=== PATIENT | male | born 1985 ===

== ENCOUNTER 2020-06-05 12:20 | Emergency (ER) | payer OTHER, MEDICAID, SELFPAY ==
[2020-06-05 12:40] VITALS: BP 143/97; PULSE 79; RESP 18; TEMP 36.7; O2SAT 97
[2020-06-05 13:36] LABS: Add Manual Diff / Slide Review NO; Basophils Absolute Auto 100 /uL (0-100); Basophils Percent Auto 0.4 % (0-2); Eosinophils Absolute Auto 100 /uL (0-450); Hematocrit 40.2 % (41-53); Hemoglobin 13.6 g/dL (13.5-17.5); Lymphocytes Absolute Auto 3500 /uL (1100-4500); Lymphocytes Percent Auto 26.8 % (25-40); Mean Corpuscular HGB Conc 33.8 % (30-36); Mean Corpuscular Volume 100.6 fL (80-100); Monocytes Absolute Auto 1200 /uL (0-900); Monocytes Percent Auto 9.4 % (3-14); Neutrophils Absolute Auto 8100 /uL (1500-7000); Neutrophils Percent Auto 62.4 % (50-75); Platelet Count 212 X10^3/uL (150-400); Red Blood Cell Count 3.99 X10^6/uL (4.5-5.9); Red Cell Distribution Width 12.2 % (11.6-14.8); White Blood Cell Count 13.1 X10^3/uL (4.5-11.0)
[2020-06-05] MEDS: ONDANSETRON 4 MG/2 ML INJ IV ×2 (13:38→14:22)
[2020-06-05] MEDS: SODIUM CHLORIDE 0.9% 1,000 ML 1000 ML IV (13:38)
[2020-06-05 14:02] LABS: Alanine Aminotransferase 17 IU/L (<50); Albumin 3.8 g/dL (3.5-5.0); Albumin Globulin Ratio 1.2 (1.0-2.8); Alkaline Phosphatase 115 U/L (38-126); Aspartate Aminotransferase 35 IU/L (17-59); BUN Creatinine Ratio 15.2 (6-22); Bilirubin Total 0.4 mg/dL (0.2-1.3); Blood Urea Nitrogen 12 mg/dL (9-20); Carbon Dioxide 33 mmol/L (22-32); Chloride 102 mmol/L (98-107); Estimated Glomerular Filt Rate > 60.0 mL/min (>60); Globulin 3.1 g/dL (1.7-4.1); Glucose 93 mg/dL (70-100); HEMOLYSIS < 15 (0-50); Lipase 51 U/L (23-300); Potassium 3.7 mmol/L (3.4-5.1); Sodium 139 mmol/L (137-145); Total Protein 6.9 g/dL (6.3-8.2)
--- NOTE | 2020-06-05 14:17 | ED.ABDPAIN ---
HPI - Abdominal Pain <ALEX Cameron - Last Filed: 06/05/20 21:46> General Chief Complaint: Abdominal Pain Stated Complaint: Stomach Pain Time Seen by Provider: 06/05/20 13:23 Source: patient Mode of arrival: Ambulatory Limitations: no limitations History of Present Illness HPI narrative: This is a 35-year-old male, smoker and drinks alcoholic beverages 6 packs/daily, who presents to ED with chief complain of ongoing generalized abdominal pain but worse in periumbilical region, diarrhea, and nausea for months but worsening during last 3 days. Patient denies blood in his stool stool or vomit. Patient reports had taken amoxicillin last course about 2 months ago. 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 He denies eating bad food or recent camping or traveling except related to work. Patient was evaluated at [facility] several times in the past and was referred to [facility] GI clinic to study for Crohn's disease. Patient reports he had received and endo and colonoscopy on 05/31/2020 was told normal findings and was discharged. Previously he was diagnosed as colitis and had used prednisone which helps with his abdominal discomfort. He reports he had finished course of prednisone 7 days ago. Patient denies fever or chills. Patient reports due to pain, nausea and decreased appetite, his not been eating well and feels very fatigued for last 3 days and has been in bed rest. He currently takes Suboxone for previous methamphetamine drug addiction. Related Data Home Medications Medication Instructions Recorded Confirmed buprenorphine-naloxone [Suboxone] 2 film SUBLINGUAL QAM 06/05/20 06/05/20 Previous Rx's Medication Instructions Recorded dicyclomine 20 mg PO BID PRN #10 tab 06/05/20 ondansetron 4 mg PO Q8H PRN #10 tab 06/05/20 pantoprazole 20 mg PO DAILY #14 tab 06/05/20 Allergies Allergy/AdvReac Type Severity Reaction Status Date / Time No Known Drug Allergies Allergy Verified 06/05/20 12:44 Review of Systems <AELX Cameron - Last Filed: 06/05/20 21:46> Review of Systems Narrative: General: Denies fever, chills, (+) fatigue, malaise, sweats. HEENT: Denies sinus pain, ear pain, sore throat, difficulty swallowing, dizziness. Respiratory: Denies dyspnea, cough, wheezing, hemoptysis, sputum. Cardiovascular: Denies chest pain, palpitations, orthopnea, edema. Gastrointestinal: HPI : Denies dysuria, frequency, incontinence, hematuria, urinary retention. Musculoskeletal: Denies weakness, joint pain or bony pain. Skin: Denies rash, skin lesions, or other. Neurologic: Denies weakness, headache, numbness, change in speech, confusion, seizures, incoordination. Psychiatric: No concerning psychosocial issues. 12-point review of systems is negative except for those stated above. Patient History <ALEX Cameron - Last Filed: 06/05/20 21:46> Medical History (Updated 06/05/20 @ 17:28 by ALEX Cameron) Colitis (Acute) Social History Smoking Status: Current every day smoker Smoking Status: Current every day smoker tobacco type: cigarettes alcohol intake frequency: 3 or more drinks per day Alcohol type: beer Substance Use Type: does not use Exam <ALEX Cameron - Last Filed: 06/05/20 21:46> Narrative Exam Narrative: GEN: Alert, oriented x 3, thin appearing and in no acute distress. Head: Normal cephalic, atraumatic. No scalp or temporal tenderness, palpable mass or rash. EYES: Pupils are equal, round, and reactive to light and accommodation. Extraocular muscles are intact bilaterally. There is no subconjunctival hemorrhage, exudate and sclera non-icteric. ENT: Hearing grossly intact. Nose without bleeding, purulent discharge. Airway patent. Neck: Trachea in midline. No JVD, non-tender without lymphadenopathy. No masses or thyroid megaly. Supple, non-tender and no meningeal signs. CARDIAC: Normal regular rate and rhythm without murmurs, gallops, or rubs. No chest wall tenderness. No peripheral edema, cyanosis or pallor. Capillary refill is less than 2 seconds. RESPIRATORY: Lungs are clear to auscultate bilaterally. No cough, wheezes, rales, or rhonchi. No stridor, respiratory distress, increase work of breathing, or accessary muscle used. ABD: Abdomen soft and non-distended. Mild tenderness to palpate in generalized abdomen. No guarding or rebound tenderness to palpate. Bowel sounds are normal in all 4 quadrants. There is no palpable masses or organomegaly. EXT: Full painless ROM of all extremities with no loss of sensation, strength, effusion or edema. SKIN: Warm, dry, normal color for patient. No erythema, lesions or rash over visible areas. BACK: Nontender without deformity or crepitance. No flank tenderness. NEUROLOGICAL: Alert and oriented to place, time and person. Sensation and motor function intact bilaterally. No facial droops, dysphasia. PSYCHIATRIC: Good judgement and reason, without hallucinations, abnormal affect or abnormal behaviors during the examination. Patient is not suicidal. Initial Vital Signs Initial Vital Signs: Vital Signs Temperature 98.1 F 06/05/20 12:40 Pulse Rate 79 06/05/20 12:40 Respiratory Rate 18 06/05/20 12:40 Blood Pressure 143/97 H 06/05/20 12:40 Pulse Oximetry 97 06/05/20 12:40 <Nikky Madrid DO - Last Filed: 06/07/20 08:30> Initial Vital Signs Initial Vital Signs: Vital Signs Temperature 98.1 F 06/05/20 12:40 Pulse Rate 79 06/05/20 12:40 Respiratory Rate 18 06/05/20 12:40 Blood Pressure 143/97 H 06/05/20 12:40 Pulse Oximetry 97 06/05/20 12:40 Scores <ALEX Cameron - Last Filed: 06/05/20 21:46> GCS Decker coma scale eye opening: Spontaneous Decker coma scale verbal response: Orientated Decker coma scale motor response: Obey commands Nicholas coma scale total score: 15 Course <ALEX Cameron Last Filed: 06/05/20 21:46> Orders Ordered: Discontinued Medications Dicyclomine HCl (Bentyl) 10 mg PO NOW ONE Stop: 06/05/20 14:14 Last Admin: 06/05/20 14:22 Dose: 10 mg Documented by: AFRICA Sodium Chloride (Normal Saline 0.9%) 1,000 mls @ 1,000 mls/hr IV CONT DIAZ Last Infusion: 06/05/20 14:57 Dose: 0 mls/hr Documented by: Admin: 06/05/20 13:38 Dose: 1,000 mls/hr Documented by: AFRICA Ketorolac Tromethamine (Toradol) 15 mg IV NOW ONE Stop: 06/05/20 16:13 Last Admin: 06/05/20 16:20 Dose: 15 mg Documented by: AFRICA Ondansetron HCl (Zofran) 4 mg IV NOW ONE Stop: 06/05/20 13:02 Last Admin: 06/05/20 13:38 Dose: 4 mg Documented by: AFRICA Ondansetron HCl (Zofran) 4 mg IV NOW ONE Stop: 06/05/20 14:14 Last Admin: 06/05/20 14:22 Dose: 4 mg Documented by: AFRICA Pantoprazole Sodium (Protonix) 40 mg IV NOW ONE Stop: 06/05/20 14:14 Last Admin: 06/05/20 14:22 Dose: 40 mg Documented by: AFRICA Reevaluation(s) Reevaluation #1: the patient reports nause and abodminal discomfort slightly improved. The patient was unable to provide stool sample. There was no vomiting since he came into ED. Time: 16:00 Consultations Consultation #1: Dr. Madrid consulted and recommended imaging test to rule out free fluid in abdomen for perforation since the patient had recent colono- and endo-scopy. Vital Signs Vital signs: Vital Signs - 8 hr 06/05/20 12:40 Temperature 98.1 F Pulse Rate 79 Respiratory Rate 18 Blood Pressure 143/97 H Pulse Oximetry 97 <Nikky Madrid, DO - Last Filed: 06/07/20 08:30> Orders Ordered: Discontinued Medications Dicyclomine HCl (Bentyl) 10 mg PO NOW ONE Stop: 06/05/20 14:14 Last Admin: 06/05/20 14:22 Dose: 10 mg Documented by: AFRICA Sodium Chloride (Normal Saline 0.9%) 1,000 mls @ 1,000 mls/hr IV CONT DIAZ Last Infusion: 06/05/20 14:57 Dose: 0 mls/hr Documented by: Admin: 06/05/20 13:38 Dose: 1,000 mls/hr Documented by: AFRICA Ketorolac Tromethamine (Toradol) 15 mg IV NOW ONE Stop: 06/05/20 16:13 Last Admin: 06/05/20 16:20 Dose: 15 mg Documented by: AFRICA Ondansetron HCl (Zofran) 4 mg IV NOW ONE Stop: 06/05/20 13:02 Last Admin: 06/05/20 13:38 Dose: 4 mg Documented by: AFRICA Ondansetron HCl (Zofran) 4 mg IV NOW ONE Stop: 06/05/20 14:14 Last Admin: 06/05/20 14:22 Dose: 4 mg Documented by: AFRICA Pantoprazole Sodium (Protonix) 40 mg IV NOW ONE Stop: 06/05/20 14:14 Last Admin: 06/05/20 14:22 Dose: 40 mg Documented by: AFRICA Vital Signs Vital signs: Vital Signs - 8 hr 06/05/20 12:40 Temperature 98.1 F Pulse Rate 79 Respiratory Rate 18 Blood Pressure 143/97 H Pulse Oximetry 97 MDM - Abdominal Pain <Dre ALEX Flores - Last Filed: 06/05/20 21:46> Differential Diagnosis Differential diagnosis: Likely abdominal pain, gastroenteritis, pancreatitis and other (Perforated bowel, gastritis, ulcers, C diff infection) Medical Records Attestation: I reviewed the patient's medical records. Lab Data Attestation: I reviewed the patient's lab results. Result diagrams: 06/05/20 13:25 06/05/20 13:25 Labs: Lab Results 06/05/20 06/05/20 06/05/20 Range/Units 13:25 13:25 13:25 WBC 13.1 H (4.5-11.0) X10^3/uL RBC 3.99 L (4.5-5.9) X10^6/uL Hgb 13.6 (13.5-17.5) g/dL Hct 40.2 L (41-53) % MCV 100.6 H (80-100) fL MCH 34.0 (26-34) PG MCHC 33.8 (30-36) % RDW 12.2 (11.6-14.8) % Plt Count 212 (150-400) X10^3/uL Neut % (Auto) 62.4 (50-75) % Lymph % (Auto) 26.8 (25-40) % Stoddard % (Auto) 9.4 (3-14) % Eos % (Auto) 1.0 L (2-4) % Baso % (Auto) 0.4 (0-2) % Neut # (Auto) 8100 H (5498-4966) /uL Lymph # (Auto) 3500 (6255-2503) /uL Stoddard # (Auto) 1200 H (0-900) /uL Eos # (Auto) 100 (0-450) /uL Baso # (Auto) 100 (0-100) /uL Sodium 139 (137-145) mmol/L Potassium 3.7 (3.4-5.1) mmol/L Chloride 102 (98-107) mmol/L Carbon Dioxide 33 H (22-32) mmol/L BUN 12 (9-20) mg/dL Creatinine 0.79 (0.66-1.25) mg/dL Estimated GFR > 60.0 (>60) mL/min BUN/Creatinine Ratio 15.2 (6-22) Glucose 93 (70-100) mg/dL Lactate 0.9 (0.7-2.1) mmol/L Calcium 9.0 (8.4-10.2) mg/dL Total Bilirubin 0.4 (0.2-1.3) mg/dL AST 35 (17-59) IU/L ALT 17 (<50) IU/L Alkaline Phosphatase 115 (38-126) U/L Total Protein 6.9 (6.3-8.2) g/dL Albumin 3.8 (3.5-5.0) g/dL Globulin 3.1 (1.7-4.1) g/dL Albumin/Globulin Ratio 1.2 (1.0-2.8) Lipase 51 (23-300) U/L Point of care testing: Urine Dip Bedside Urine Glucose Negative Bedside Urine Bilirubin - Negative Bedside Urine Ketone - Negative Urine Specific Leroy 1.015 Bedside Urine Occult Blood - Negative Bedside Urine pH 6.5 Bedside Urine Protein - Negative Bedside Urine Urobilinogen - Negative Bedside Urine Nitrite - Negative Bedside Urine Leukocytes - Negative Esterase Imaging Data Abdominal x-ray: Radiologist's Impression: [address] [address] XRay Report Signed Patient: Reymundo Pagan MMR#: [id number] : 1985Acct:[id number] Age/Sex: 35 / MDate of Service: 06/05/20 Loc: ED Accession Number: [id number] Procedure: XR acute abdomen series Ordering Provider: Dre Flores PROCEDURE: XR ACUTE ABDOMEN SERIES INDICATIONS: abd pain, s/p endo and colonoscope 5 days ago, ?perf TECHNIQUE: One view chest and two views of the abdomen were acquired. COMPARISON: None. FINDINGS: Surgical changes and devices: None. Chest: Lungs are clear. Heart size is normal. No pleural effusions. Abdomen: In this patient with this given history, scrutiny is given to findings of perforation. None can be seen. The bowel gas pattern is nonobstructive, with no dilated loops seen. Bones: No suspicious bony lesions. IMPRESSION: Negative for perforation. Dictated by: Serge Prakash M.D. on 06/05/2020 at 16:08 Approved by: Serge Prakash M.D. on 06/05/2020 at 16:09 [facility] Narrative Medical decision making narrative: This is a 35-year-old male who has ongoing abdominal discomfort with nausea, diarrhea. He was evaluated in other emergency room with CT tests and blood test and was referred to GI specialist for upper and lower school for Crohn's evaluation which patient has family history of Crohn's and other autoimmune disease. Medical records were obtained from [facility] and [facility]. He was able to follow-up with GI specialist 5 days ago and had normal endo and colnoscopy results reviewing the records. Patient reports pain, diarrhea and nausea is worse today and has not been able to eat well due to decreased appetite and discomfort which cause significant fatigue. Mildly elevated WBC of 13.1 with neutrophil# of 8100 and this could be due to nausea and vomiting. Normal lipase with unremarkable chemistry test. Although patient is in moderate alcohol drinker but liver function tests were normal. Lactate was normal. Urine test indicates no infection. Patient was unable to provide stool sample to test C diff and GI panel for cause for other infectious diarrhea. Patient is nontoxic appearance with afebrile. Given patient had recent scopes done, abdominal x-ray was ordered which shows no free air indicating perforation. Given patient had normal scopes done 5 days ago and this is ongoing abdominal pain, in shared decision making deferred another abdominal CT test today. Last abdominal CT was done in February at [facility] on 03/10/20 and 03/12/20 indicating suggestive of gastroenteritis involving the small bowel and proctitis. Patient reports was on several course of steroids treatments and thinks this improves his symptoms but will hold at this time after discussing possible side effects and there is no Crohn's appreciated at this time per colonoscopy. The patient was treated with IV fluids, pantoprazole, Zofran 2 doses, Bentyl for discomfort which improve his symptoms mildly. Patient did not have episode of emesis or stools in ED. patient advised to follow-up with GI clinic and to arrange primary care physician and [facility] phone number. Patient discharged to home with Zofran, Bentyl and Protonix for as needed use with return precautions. Advised to push fluids and it bland diet and advance it as he tolerates. We discussed warrant CT test if his symptoms gets worse. Return precautions were discussed and patient verbalized understanding in agreement with the treatment plan. <Nikky Madrid, DO - Last Filed: 06/07/20 08:30> Lab Data Labs: Lab Results 06/05/20 06/05/20 06/05/20 Range/Units 13:25 13:25 13:25 WBC 13.1 H (4.5-11.0) X10^3/uL RBC 3.99 L (4.5-5.9) X10^6/uL Hgb 13.6 (13.5-17.5) g/dL Hct 40.2 L (41-53) % MCV 100.6 H (80-100) fL MCH 34.0 (26-34) PG MCHC 33.8 (30-36) % RDW 12.2 (11.6-14.8) % Plt Count 212 (150-400) X10^3/uL Neut % (Auto) 62.4 (50-75) % Lymph % (Auto) 26.8 (25-40) % Stoddard % (Auto) 9.4 (3-14) % Eos % (Auto) 1.0 L (2-4) % Baso % (Auto) 0.4 (0-2) % Neut # (Auto) 8100 H (7751-6676) /uL Lymph # (Auto) 3500 (3636-5583) /uL Stoddard # (Auto) 1200 H (0-900) /uL Eos # (Auto) 100 (0-450) /uL Baso # (Auto) 100 (0-100) /uL Sodium 139 (137-145) mmol/L Potassium 3.7 (3.4-5.1) mmol/L Chloride 102 (98-107) mmol/L Carbon Dioxide 33 H (22-32) mmol/L BUN 12 (9-20) mg/dL Creatinine 0.79 (0.66-1.25) mg/dL Estimated GFR > 60.0 (>60) mL/min BUN/Creatinine Ratio 15.2 (6-22) Glucose 93 (70-100) mg/dL Lactate 0.9 (0.7-2.1) mmol/L Calcium 9.0 (8.4-10.2) mg/dL Total Bilirubin 0.4 (0.2-1.3) mg/dL AST 35 (17-59) IU/L ALT 17 (<50) IU/L Alkaline Phosphatase 115 (38-126) U/L Total Protein 6.9 (6.3-8.2) g/dL Albumin 3.8 (3.5-5.0) g/dL Globulin 3.1 (1.7-4.1) g/dL Albumin/Globulin Ratio 1.2 (1.0-2.8) Lipase 51 (23-300) U/L Point of care testing: Urine Dip Bedside Urine Glucose Negative Bedside Urine Bilirubin - Negative Bedside Urine Ketone - Negative Urine Specific Leroy 1.015 Bedside Urine Occult Blood - Negative Bedside Urine pH 6.5 Bedside Urine Protein - Negative Bedside Urine Urobilinogen - Negative Bedside Urine Nitrite - Negative Bedside Urine Leukocytes - Negative Esterase Discharge Plan Departure Patient Disposition: Home Clinical Impression: Nausea, vomiting and diarrhea Abdominal pain Qualifiers: Abdominal location: generalized Qualified Code(s): R10.84 - Generalized abdominal pain Nausea & vomiting Qualifiers: Vomiting type: unspecified Vomiting Intractability: non-intractable Qualified Code(s): R11.2 - Nausea with vomiting, unspecified Discharge Date/Time: 06/05/20 18:06 Instructions: Diarrhea (Alternative Therapy), DI for Abdominal Pain-Adult, DI for Nausea -- Adult Activity Restrictions/Additional Instructions: You have been diagnosed with generalized abdominal pain, nausea. X-ray test does not show acute findings including free air indicating perforation. Mildly elevated white count which is likely due to nausea and vomiting. Normal lactate level. Normal lipase. Unremarkable chemistry test within normal liver function. Please limit alcohol ingestion and smoking. Your unable to provide stool sample at this time. No indication for urinary tract infection. What to do: *Take your medications as directed. Take Protonix daily for next couple of days. Use Bentyl for abdominal cramping pain and Zofran for nausea as needed. Please is small amount frequently bland diet and advance it as you can tolerate this. *Follow up with your primary care provider in 2-3 days, call for an appointment. Let them know you were seen in the ED and that we asked you to be seen in follow up. Please follow-up with [facility] GI clinic. *Return to ED if you have any new, worsening, or concerning symptoms, such as [chest pain, breathing difficulty, unable to tolerate fluids, blood in the stool or vomiting, worsening pain, or any acute concerns]. Prescriptions: New ondansetron 4 mg tablet,disintegrating 4 mg PO Q8H PRN (Reason: nausea and vomiting) Qty: 10 RF: 0 dicyclomine 20 mg tablet 20 mg PO BID PRN (Reason: cramping pain) Qty: 10 RF: 0 pantoprazole 20 mg tablet,delayed release (DR/EC) 20 mg PO DAILY Qty: 14 RF: 0 No Action buprenorphine-naloxone [Suboxone] 8-2 mg film 2 film sublingual QAM RF: 0 Referrals: [facility] [Outside] <Nikky Madrid, - Last Filed: 06/07/20 08:30> [facility] [place] Attestation: I was immediately available in the department for consultation. Documentation has been reviewed. I agree with assessment and plan.
[2020-06-05] MEDS: PANTOPRAZOLE 40 MG VIAL IV (14:22)
[2020-06-05] MEDS: DICYCLOMINE 10 MG CAPSULE PO (14:22)
[2020-06-05] MEDS: KETOROLAC 60 MG/2 ML VIAL 15 MG IV (16:20)
[2020-06-05 16:33] LABS: Lactate (Lactic Acid) 0.9 mmol/L (0.7-2.1)
--- NOTE | 2020-06-05 16:44 | DI.RAD.S_ITS ---
PROCEDURE: XR ACUTE ABDOMEN SERIES INDICATIONS: abd pain, s/p endo and colonoscope 5 days ago, ?perf TECHNIQUE: One view chest and two views of the abdomen were acquired. COMPARISON: None. FINDINGS: Surgical changes and devices: None. Chest: Lungs are clear. Heart size is normal. No pleural effusions. Abdomen: In this patient with this given history, scrutiny is given to findings of perforation. None can be seen. The bowel gas pattern is nonobstructive, with no dilated loops seen. Bones: No suspicious bony lesions. IMPRESSION: Negative for perforation. Dictated by: Serge Prakash M.D. on 06/05/2020 at 16:08 Approved by: Serge Prakash M.D. on 06/05/2020 at 16:09
== END 2020-06-05 18:06 | disposition home or self-care (01) ==
PROVIDERS: Emergency Medicine; Emergency Provider Nurse Practitioner Family
DX: R10.84 Generalized abdominal pain (principal); R11.2 Nausea with vomiting, unspecified; R19.7 Diarrhea, unspecified; D72.829 Elevated white blood cell count, unspecified
CPT/HCPCS: 36415; 74022; 80053; 81003; 83605; 83690; 85025; 96361; 96374; 96375; 96376; 99284; C9113; J1885; J2405

== ENCOUNTER 2022-11-08 15:13 | Emergency (ER) | payer OTHER, MEDICAID, SELFPAY ==
[2022-11-08 15:17] VITALS: BP 144/98; PULSE 88; RESP 18; TEMP 36.7; O2SAT 96; BMI 28.8
[2022-11-08] MEDS: ONDANSETRON 4 MG/2 ML INJ IV (15:43)
[2022-11-08] MEDS: SODIUM CHLORIDE 0.9% 1,000 ML 1000 ML IV ×2 (15:43→17:02)
[2022-11-08 15:47] LABS: Add Manual Diff / Slide Review NO; Basophils Absolute Auto 100 /uL (0-100); Basophils Percent Auto 0.9 % (0-2); Eosinophils Absolute Auto 100 /uL (0-450); Eosinophils Percent Auto 1.8 % (2-4); Hematocrit 45.1 % (41-53); Hemoglobin 15.5 g/dL (13.5-17.5); Lymphocytes Absolute Auto 3400 /uL (1100-4500); Mean Corpuscular HGB Conc 34.4 % (30-36); Mean Corpuscular Hemoglobin 33.3 PG (26-34); Mean Corpuscular Volume 96.7 fL (80-100); Monocytes Absolute Auto 600 /uL (0-900); Monocytes Percent Auto 8.9 % (3-14); Neutrophils Absolute Auto 2800 /uL (1500-7000); Neutrophils Percent Auto 40.4 % (50-75); Platelet Count 246 X10^3/uL (150-400); Red Blood Cell Count 4.67 X10^6/uL (4.5-5.9); Red Cell Distribution Width 14.2 % (11.6-14.8)
[2022-11-08 16:05] LABS: Alanine Aminotransferase 26 IU/L (<50); Albumin 4.1 g/dL (3.5-5.0); Albumin Globulin Ratio 1.2 (1.0-2.8); Alkaline Phosphatase 153 U/L (38-126); Aspartate Aminotransferase 73 IU/L (17-59); BUN Creatinine Ratio 16.2 (6-22); Bilirubin Total 0.8 mg/dL (0.2-1.3); Blood Urea Nitrogen 19 mg/dL (9-20); Calcium 8.1 mg/dL (8.4-10.2); Carbon Dioxide 28 mmol/L (22-32); Chloride 98 mmol/L (98-107); Estimated Glomerular Filt Rate > 60 mL/min (>60); Ethanol (ETOH) 120 mg/dL; Globulin 3.3 g/dL (1.7-4.1); Glucose 106 mg/dL (70-100); HEMOLYSIS 30 (0-50); Lipase 103 U/L (23-300); Sodium 137 mmol/L (137-145); Total Protein 7.4 g/dL (6.3-8.2)
[2022-11-08 17:20] LABS: UR Morphine/Opiate cutoff 300 Negative (Negative); Ur Creatinine Normal (Normal); Ur Specific Gravity Normal (Normal); Urine Amphetamines Negative (Negative); Urine Barbiturates Negative (Negative); Urine Benzodiazepines Negative (Negative); Urine Cocaine Negative (Negative); Urine MDMA Negative (Negative); Urine Methadone Negative (Negative); Urine Methamphetamines Negative (Negative); Urine Oxycodone Negative (Negative); Urine Phencyclidine Negative (Negative); Urine Tetrahydrocannabinol Negative (Negative); Urine Tricyclic Antidepressant Negative (Negative); Urine pH Normal (Normal)
--- NOTE | 2022-11-08 18:03 | ED_ITS ---
HPI - Nausea/Vomiting/Diarrhea <Bina Matta PA-C - Last Filed: 11/08/22 19:15> General Chief complaint: Nausea/Vomiting/Diarrhea Stated complaint: Vomiting, Stomach pain Time Seen by Provider: 11/08/22 16:37 Source: patient Mode of arrival: Family Vehicle History of Present Illness HPI Narrative: Is a 37-year-old male who drinks about 6 beers daily for the past 3 months, long history of regular drinking but it stopped for 1 year prior to 3 months ago. Presents today with concern for 3 months of abdominal pain every day worse in the morning with vomiting in the morning when he wakes up. States he eats very little until afternoon or early evening as he has no appetite. Describes his abdominal pain as in the middle mostly up high and persistent aching pain. He is unsure if it is worse with eating or drinking says that drinking beer ?numbs it?. He denies any change in symptoms recently and states his symptoms today were persistent with the last 3 months, he states he has state insurance but do es not have a primary care provider. He is not taking any medications for his symptoms currently. Related Data Home Medications Medication Instructions Recorded Confirmed buprenorphine 8 mg-naloxone 2 mg 2 film sublingual QAM 06/05/20 06/05/20 sublingual film (Suboxone) Previous Rx's Medication Instructions Recorded dicyclomine 20 mg tablet 20 mg PO BID PRN cramping pain #10 06/05/20 tabs ondansetron 4 mg disintegrating 4 mg PO Q8H PRN nausea and 06/05/20 tablet vomiting #10 tabs pantoprazole 20 mg tablet,delayed 20 mg PO DAILY #14 tabs 06/05/20 release ondansetron 4 mg disintegrating 4 mg PO Q8H PRN nausea and 11/08/22 tablet vomiting #20 tabs pantoprazole 20 mg tablet,delayed 20 mg PO DAILY #30 tabs 11/08/22 release Allergies Allergy/AdvReac Type Severity Reaction Status Date / Time No Known Drug Allergies Allergy Verified 11/08/22 15:23 Patient History <Bina Matta PA-C - Last Filed: 11/08/22 19:15> Medical History (Updated 11/08/22 @ 19:14 by Bina Matta PA-C) Colitis Social History Smoking Status: Current every day smoker Smoking Status: Current every day smoker tobacco type: cigarettes alcohol intake frequency: 3 or more drinks per day Alcohol type: beer Substance Use Type: does not use Exam <Bina Matta PA-C - Last Filed: 11/08/22 19:15> Narrative Exam Narrative: GENERAL: 37 year old patient appears stated age. Well-developed patient, in mild distress. HEAD: Atraumatic. Normocephalic. EYES: Pupils equal round and reactive. Extraocular motions intact. No scleral icterus. No injection or drainage. ENT: Nose without bleeding, purulent drainage. Airway patent. NECK: Trachea midline. Non tender CARDIOVASCULAR: Regular rate and rhythm without murmurs, gallops, or rubs. RESPIRATORY: Clear to auscultation. Breath sounds equal bilaterally. No wheezes, rales, or rhonchi. GASTROINTESTINAL: Abdomen soft, there is mild epigastric tenderness, otherwise non-tender, nondistended, negative Parker's sign negative McBurney's point tenderness. EXTREMITIES: No edema or joint tenderness. BACK: Nontender without deformity or crepitance. No flank tenderness. NEURO: AOx3. SKIN: No rash or erythema of visible areas Initial Vital Signs Initial Vital Signs: Vital Signs Temperature 98.0 F 11/08/22 15:17 Pulse Rate 88 11/08/22 15:17 Respiratory Rate 18 11/08/22 15:17 Blood Pressure 144/98 H 11/08/22 15:17 Pulse Oximetry 96 11/08/22 15:17 Oxygen Delivery Method 11/08/22 15:17 <Daphne Montero DO - Last Filed: 11/09/22 07:09> Initial Vital Signs Initial Vital Signs: Vital Signs Temperature 98.0 F 11/08/22 15:17 Pulse Rate 88 11/08/22 15:17 Respiratory Rate 18 11/08/22 15:17 Blood Pressure 144/98 H 11/08/22 15:17 Pulse Oximetry 96 11/08/22 15:17 Oxygen Delivery Method 11/08/22 15:17 Course <Bina Matta PA-C - Last Filed: 11/08/22 19:15> Orders Ordered: Discontinued Medications Al Hydrox/Mg Hydrox/Simethicone 20 ml/ Lidocaine HCl 15 ml 0 ml PO NOW ONE Stop: 11/08/22 18:03 Last Admin: 11/08/22 18:08 Dose: 35 ml Documented By: NIKHIL Sodium Chloride (Normal Saline 0.9%) 1,000 mls @ 1,000 mls/hr IV BOLUS ONE Stop: 11/08/22 16:35 Last Infusion: 11/08/22 16:46 Dose: 0 mls/hr Documented By: Admin: 11/08/22 15:43 Dose: 1,000 mls/hr Documented By: MEGHAN Sodium Chloride (Normal Saline 0.9%) 1,000 mls @ 1,000 mls/hr IV BOLUS ONE Stop: 11/08/22 17:39 Last Infusion: 11/08/22 17:50 Dose: 0 mls/hr Documented By: MEGHAN(2) Admin: 11/08/22 17:02 Dose: 1,000 mls/hr Documented By: MEGHAN(2) Ondansetron HCl (Ondansetron 4 Mg Odt) 4 mg PO NOW PRN PRN Reason: Nausea And Vomiting Ondansetron HCl (Ondansetron 4 Mg/2 Ml Inj) 4 mg IV NOW PRN PRN Reason: Nausea And Vomiting Last Admin: 11/08/22 15:43 Dose: 4 mg Documented By: MEGHAN Pantoprazole Sodium (Pantoprazole 40 Mg Vial) 20 mg IV NOW ONE Stop: 11/08/22 18:03 Last Admin: 11/08/22 18:08 Dose: 20 mg Documented By: NIKHIL Vital Signs Vital signs: Vital Signs - 8 hr 11/08/22 15:17 11/08/22 18:14 Temperature 98.0 F Pulse Rate 88 80 Respiratory Rate 18 16 Blood Pressure 144/98 H 140/82 Pulse Oximetry 96 99 Oxygen Delivery Method Room Air Room Air <Daphne Montero, - Last Filed: 11/09/22 07:09> Orders Ordered: Discontinued Medications Al Hydrox/Mg Hydrox/Simethicone 20 ml/ Lidocaine HCl 15 ml 0 ml PO NOW ONE Stop: 11/08/22 18:03 Last Admin: 11/08/22 18:08 Dose: 35 ml Documented By: NIKHIL Sodium Chloride (Normal Saline 0.9%) 1,000 mls @ 1,000 mls/hr IV BOLUS ONE Stop: 11/08/22 16:35 Last Infusion: 11/08/22 16:46 Dose: 0 mls/hr Documented By: Admin: 11/08/22 15:43 Dose: 1,000 mls/hr Documented By: MEGHAN Sodium Chloride (Normal Saline 0.9%) 1,000 mls @ 1,000 mls/hr IV BOLUS ONE Stop: 11/08/22 17:39 Last Infusion: 11/08/22 17:50 Dose: 0 mls/hr Documented By: MEGHAN(2) Admin: 11/08/22 17:02 Dose: 1,000 mls/hr Documented By: MEGHAN(2) Ondansetron HCl (Ondansetron 4 Mg Odt) 4 mg PO NOW PRN PRN Reason: Nausea And Vomiting Ondansetron HCl (Ondansetron 4 Mg/2 Ml Inj) 4 mg IV NOW PRN PRN Reason: Nausea And Vomiting Last Admin: 11/08/22 15:43 Dose: 4 mg Documented By: MEGHAN Pantoprazole Sodium (Pantoprazole 40 Mg Vial) 20 mg IV NOW ONE Stop: 11/08/22 18:03 Last Admin: 11/08/22 18:08 Dose: 20 mg Documented By: NIKHIL Vital Signs Vital signs: Vital Signs - 8 hr 11/08/22 15:17 11/08/22 18:14 Temperature 98.0 F Pulse Rate 88 80 Respiratory Rate 18 16 Blood Pressure 144/98 H 140/82 Pulse Oximetry 96 99 Oxygen Delivery Method Room Air Room Air MDM - Nausea/Vomiting/Diarrhea <Bina Matta PA-C - Last Filed: 11/08/22 19:15> Differential Diagnosis Differential diagnosis: Likely gastroenteritis, dehydration and other (gatritis, chronic alcohol use, acid reflux) Medical Records Medical records narrative: I reviewed the patient's medical records Lab Data Lab results narrative: I reviewed the patient's labs 11/08/22 15:34 11/08/22 15:34 Labs: Lab Results 11/08/22 11/08/22 11/08/22 Range/Units 15:34 15:34 15:34 WBC 7.0 (4.5-11.0) X10^3/uL RBC 4.67 (4.5-5.9) X10^6/uL Hgb 15.5 (13.5-17.5) g/dL Hct 45.1 (41-53) % MCV 96.7 (80-100) fL MCH 33.3 (26-34) PG MCHC 34.4 (30-36) % RDW 14.2 (11.6-14.8) % Plt Count 246 (150-400) X10^3/uL Neut % (Auto) 40.4 L (50-75) % Lymph % (Auto) 48.0 H (25-40) % [place] % (Auto) 8.9 (3-14) % Eos % (Auto) 1.8 L (2-4) % Baso % (Auto) 0.9 (0-2) % Neut # (Auto) 2800 (4929-1397) /uL Lymph # (Auto) 3400 (8824-7135) /uL [place] # (Auto) 600 (0-900) /uL Eos # (Auto) 100 (0-450) /uL Baso # (Auto) 100 (0-100) /uL Sodium 137 (137-145) mmol/L Potassium 4.0 (3.4-5.1) mmol/L Chloride 98 (98-107) mmol/L Carbon Dioxide 28 (22-32) mmol/L BUN 19 (9-20) mg/dL Creatinine 1.17 (0.66-1.25) mg/dL Estimated GFR > 60 (>60) mL/min BUN/Creatinine Ratio 16.2 (6-22) Glucose 106 H (70-100) mg/dL Calcium 8.1 L (8.4-10.2) mg/dL Total Bilirubin 0.8 (0.2-1.3) mg/dL AST 73 H (17-59) IU/L ALT 26 (<50) IU/L Alkaline Phosphatase 153 H (38-126) U/L Total Protein 7.4 (6.3-8.2) g/dL Albumin 4.1 (3.5-5.0) g/dL Globulin 3.3 (1.7-4.1) g/dL Albumin/Globulin Ratio 1.2 (1.0-2.8) Lipase 103 (23-300) U/L U Opiates 300ng/mL cut (Negative) Ur Oxycodone Screen (Negative) Urine Methadone Screen (Negative) Ur Barbiturates Screen (Negative) U Tricyclic Antidepress (Negative) Ur Phencyclidine Scrn (Negative) Ur Amphetamines Screen (Negative) U Methamphetamines Scrn (Negative) Ur MDMA Scrn (Ecstasy) (Negative) U Benzodiazepines Scrn (Negative) Urine Cocaine Screen (Negative) U Marijuana (THC) Screen (Negative) Ethyl Alcohol 120 H ( - 10) mg/dL 11/08/22 Range/Units 16:38 WBC (4.5-11.0) X10^3/uL RBC (4.5-5.9) X10^6/uL Hgb (13.5-17.5) g/dL Hct (41-53) % MCV (80-100) fL MCH (26-34) PG MCHC (30-36) % RDW (11.6-14.8) % Plt Count (150-400) X10^3/uL Neut % (Auto) (50-75) % Lymph % (Auto) (25-40) % [place] % (Auto) (3-14) % Eos % (Auto) (2-4) % Baso % (Auto) (0-2) % Neut # (Auto) (5029-1404) /uL Lymph # (Auto) (3175-1544) /uL [place] # (Auto) (0-900) /uL Eos # (Auto) (0-450) /uL Baso # (Auto) (0-100) /uL Sodium (137-145) mmol/L Potassium (3.4-5.1) mmol/L Chloride (98-107) mmol/L Carbon Dioxide (22-32) mmol/L BUN (9-20) mg/dL Creatinine (0.66-1.25) mg/dL Estimated GFR (>60) mL/min BUN/Creatinine Ratio (6-22) Glucose (70-100) mg/dL Calcium (8.4-10.2) mg/dL Total Bilirubin (0.2-1.3) mg/dL AST (17-59) IU/L ALT (<50) IU/L Alkaline Phosphatase (38-126) U/L Total Protein (6.3-8.2) g/dL Albumin (3.5-5.0) g/dL Globulin (1.7-4.1) g/dL Albumin/Globulin Ratio (1.0-2.8) Lipase (23-300) U/L U Opiates 300ng/mL cut Negative (Negative) Ur Oxycodone Screen Negative (Negative) Urine Methadone Screen Negative (Negative) Ur Barbiturates Screen Negative (Negative) U Tricyclic Antidepress Negative (Negative) Ur Phencyclidine Scrn Negative (Negative) Ur Amphetamines Screen Negative (Negative) U Methamphetamines Scrn Negative (Negative) Ur MDMA Scrn (Ecstasy) Negative (Negative) U Benzodiazepines Scrn Negative (Negative) Urine Cocaine Screen Negative (Negative) U Marijuana (THC) Screen Negative (Negative) Ethyl Alcohol ( - 10) mg/dL Urine Dip Bedside Urine Glucose Negative Bedside Urine Bilirubin - Negative Bedside Urine Ketone - Negative Urine Specific [place] 1.015 Bedside Urine Occult Blood - Negative Bedside Urine pH 6 Bedside Urine Protein - Negative Bedside Urine Urobilinogen - Negative Bedside Urine Nitrite - Negative Bedside Urine Leukocytes - Negative Esterase Treatment and disposition Shared decision making:: Shared decision-making was used in determining this patient's evaluation and treatment in the emergency department as well as his plan for follow-up. MDM Narrative Medical decision making narrative: Generally well-appearing 37-year-old male with a history of drinking 6 beers a day for the past 3 months as well as chronic history of drinking for years presents with concern for 3 months of upper abdominal pain has been unchanged worse in the mornings with vomiting in the mornings. Patient is treated today with fluids Zofran and Protonix IV. Does have some improvement in symptoms. He is chronically on Suboxone. Counseled the patient that he should work on establishing primary care provider and that likely some of his symptoms are related to his persistent alcohol use. Suspect that he may have chronic gastritis associated with this, less likely an ulcer given the nature of his pain. Prescriptions today for zofran and pantoprozole. Labs are unremarkable, imaging is not obtained given the chronic nature of his pain and his exam is not suggestive of acute intra-abdominal process. <Daphne Montero, DO - Last Filed: 11/09/22 07:09> Lab Data Labs: Lab Results 11/08/22 11/08/22 11/08/22 Range/Units 15:34 15:34 15:34 WBC 7.0 (4.5-11.0) X10^3/uL RBC 4.67 (4.5-5.9) X10^6/uL Hgb 15.5 (13.5-17.5) g/dL Hct 45.1 (41-53) % MCV 96.7 (80-100) fL MCH 33.3 (26-34) PG MCHC 34.4 (30-36) % RDW 14.2 (11.6-14.8) % Plt Count 246 (150-400) X10^3/uL Neut % (Auto) 40.4 L (50-75) % Lymph % (Auto) 48.0 H (25-40) % [place] % (Auto) 8.9 (3-14) % Eos % (Auto) 1.8 L (2-4) % Baso % (Auto) 0.9 (0-2) % Neut # (Auto) 2800 (5510-9349) /uL Lymph # (Auto) 3400 (1587-5761) /uL [place] # (Auto) 600 (0-900) /uL Eos # (Auto) 100 (0-450) /uL Baso # (Auto) 100 (0-100) /uL Sodium 137 (137-145) mmol/L Potassium 4.0 (3.4-5.1) mmol/L Chloride 98 (98-107) mmol/L Carbon Dioxide 28 (22-32) mmol/L BUN 19 (9-20) mg/dL Creatinine 1.17 (0.66-1.25) mg/dL Estimated GFR > 60 (>60) mL/min BUN/Creatinine Ratio 16.2 (6-22) Glucose 106 H (70-100) mg/dL Calcium 8.1 L (8.4-10.2) mg/dL Total Bilirubin 0.8 (0.2-1.3) mg/dL AST 73 H (17-59) IU/L ALT 26 (<50) IU/L Alkaline Phosphatase 153 H (38-126) U/L Total Protein 7.4 (6.3-8.2) g/dL Albumin 4.1 (3.5-5.0) g/dL Globulin 3.3 (1.7-4.1) g/dL Albumin/Globulin Ratio 1.2 (1.0-2.8) Lipase 103 (23-300) U/L U Opiates 300ng/mL cut (Negative) Ur Oxycodone Screen (Negative) Urine Methadone Screen (Negative) Ur Barbiturates Screen (Negative) U Tricyclic Antidepress (Negative) Ur Phencyclidine Scrn (Negative) Ur Amphetamines Screen (Negative) U Methamphetamines Scrn (Negative) Ur MDMA Scrn (Ecstasy) (Negative) U Benzodiazepines Scrn (Negative) Urine Cocaine Screen (Negative) U Marijuana (THC) Screen (Negative) Ethyl Alcohol 120 H ( - 10) mg/dL 11/08/22 Range/Units 16:38 WBC (4.5-11.0) X10^3/uL RBC (4.5-5.9) X10^6/uL Hgb (13.5-17.5) g/dL Hct (41-53) % MCV (80-100) fL MCH (26-34) PG MCHC (30-36) % RDW (11.6-14.8) % Plt Count (150-400) X10^3/uL Neut % (Auto) (50-75) % Lymph % (Auto) (25-40) % [place] % (Auto) (3-14) % Eos % (Auto) (2-4) % Baso % (Auto) (0-2) % Neut # (Auto) (0040-7055) /uL Lymph # (Auto) (3179-1530) /uL [place] # (Auto) (0-900) /uL Eos # (Auto) (0-450) /uL Baso # (Auto) (0-100) /uL Sodium (137-145) mmol/L Potassium (3.4-5.1) mmol/L Chloride (98-107) mmol/L Carbon Dioxide (22-32) mmol/L BUN (9-20) mg/dL Creatinine (0.66-1.25) mg/dL Estimated GFR (>60) mL/min BUN/Creatinine Ratio (6-22) Glucose (70-100) mg/dL Calcium (8.4-10.2) mg/dL Total Bilirubin (0.2-1.3) mg/dL AST (17-59) IU/L ALT (<50) IU/L Alkaline Phosphatase (38-126) U/L Total Protein (6.3-8.2) g/dL Albumin (3.5-5.0) g/dL Globulin (1.7-4.1) g/dL Albumin/Globulin Ratio (1.0-2.8) Lipase (23-300) U/L U Opiates 300ng/mL cut Negative (Negative) Ur Oxycodone Screen Negative (Negative) Urine Methadone Screen Negative (Negative) Ur Barbiturates Screen Negative (Negative) U Tricyclic Antidepress Negative (Negative) Ur Phencyclidine Scrn Negative (Negative) Ur Amphetamines Screen Negative (Negative) U Methamphetamines Scrn Negative (Negative) Ur MDMA Scrn (Ecstasy) Negative (Negative) U Benzodiazepines Scrn Negative (Negative) Urine Cocaine Screen Negative (Negative) U Marijuana (THC) Screen Negative (Negative) Ethyl Alcohol ( - 10) mg/dL Urine Dip Bedside Urine Glucose Negative Bedside Urine Bilirubin - Negative Bedside Urine Ketone - Negative Urine Specific [place] 1.015 Bedside Urine Occult Blood - Negative Bedside Urine pH 6 Bedside Urine Protein - Negative Bedside Urine Urobilinogen - Negative Bedside Urine Nitrite - Negative Bedside Urine Leukocytes - Negative Esterase Discharge Plan Departure Patient Disposition: Home Clinical Impression: Gastritis, Acid reflux, Chronic vomiting Activity Restrictions/Additional Instructions: Thank you for letting see primary care in the emergency department today. Your labs today were looking okay. Your liver enzymes are slightly elevated but this is likely due to your persistent alcohol use. I suspect that you have gastritis or chronic inflammation likely in part associated with her regular alcohol use. Diet can also be a factor. You should work on eating a diet that is low in acids, I have also prescribed an oral medicine to help with excess acid buildup as well as an anti nausea and vomiting medicine which she should only take as prescribed. I strongly encourage you to establish care with a primary care provider for further evaluation and ongoing care. I encourage you to cut back on your drinking although you may want to do this gradually and seek help for this. Few have new or worsening symptoms do not hesitate to be re-evaluated. There is no evidence of an emergent or life threatening illness at this time, but follow up with your doctor in 1-2 days is recommended nonetheless to co ntinue to rule out serious underlying causes of your symptoms. Please call the office for an appointment. Please return to the Emergency Department for any worsening or persistent symptoms. Please take medications as directed. Prescriptions: New pantoprazole 20 mg tablet,delayed release (DR/EC) 20 mg PO DAILY Qty: 30 2RF ondansetron 4 mg tablet,disintegrating 4 mg PO Q8H PRN (Reason: nausea and vomiting) Qty: 20 1RF No Action buprenorphine-naloxone [Suboxone] 8-2 mg film 2 film sublingual QAM Label Comments: PLACE 2 STRIPS UNDER THE TONGUE ONCE DAILY FOR 8 DAYS ondansetron 4 mg tablet,disintegrating 4 mg PO Q8H PRN (Reason: nausea and vomiting) Qty: 10 0RF dicyclomine 20 mg tablet 20 mg PO BID PRN (Reason: cramping pain) Qty: 10 0RF pantoprazole 20 mg tablet,delayed release (DR/EC) 20 mg PO DAILY Qty: 14 0RF Stand Alone Forms: Patient Portal/API <Daphne Montero DO - Last Filed: 11/09/22 07:09> Cosign ED Attending Cosignature Attestation: I was immediately available in the department for consultation. Documentation has been reviewed.
[2022-11-08] MEDS: MAG HYDROX/ALUMINUM/SIMETH SUS 20 ML, LIDOCAINE VISCOUS 2% 15 ML PO (18:08)
[2022-11-08] MEDS: PANTOPRAZOLE 40 MG VIAL 20 MG IV (18:08)
[2022-11-08 18:14] VITALS: BP 140/82; PULSE 80; RESP 16; O2SAT 99
[2022-11-08 19:17] VITALS: BP 134/82; PULSE 78; RESP 20; TEMP 36.4; O2SAT 98
== END 2022-11-08 19:15 | disposition home or self-care (01) ==
PROVIDERS: Emergency Medicine; Emergency Provider Student in an Organized Health Care Education/Training Program
DX: K29.70 Gastritis, unspecified, without bleeding (principal); K21.9 Gastro-esophageal reflux disease without esophagitis; R11.10 Vomiting, unspecified
CPT/HCPCS: 36415; 80053; 80305; 80320; 81003; 83690; 85025; 96361; 96374; 96375; 99284; C9113; J2405

== ENCOUNTER 2023-09-10 12:33 | Emergency (ER) | payer OTHER, MEDICAID, SELFPAY ==
[2023-09-10 12:59] VITALS: BP 141/90; PULSE 77; RESP 16; TEMP 36.5; O2SAT 97; BMI 29.5
--- NOTE | 2023-09-10 13:05 | DI.RAD.S_ITS ---
PROCEDURE: XR HIP W PEL IF DONE LT 2V INDICATIONS: increasing pain TECHNIQUE: AP pelvis with lateral view(s) of the left hip(s). . There [facility], CR, XR ACUTE ABDOMEN SERIES, 06/05/2020, 16:40. re small left collar COMPARISON: FINDINGS: Bones: No acute fracture or dislocation. There is sclerosis and mild cortical irregularity of the left femoral head. Left collar osteophytes are noted. This is a new finding when compared with the study dated June 05, 2020. Soft tissues: The visualized bowel gas pattern is normal. No suspicious soft tissue calcifications. IMPRESSION: 1. Sclerosis and cortical irregularity of the left femoral head. 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 Further characterization with MRI is recommended. Dictated by: Joann Romero M.D. on 09/10/2023 at 14:35 Approved by: Joann Romero M.D. on 09/10/2023 at 14:36
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
--- NOTE | 2023-09-10 14:57 | DI.MRI.S_ITS ---
PROCEDURE: MR HIP LT WO CON INDICATIONS: evaluate for avascular necrosis TECHNIQUE: Noncontrast coronal T1 spin echo and STIR through the bony pelvis. Coronal and axial T2 fast spin echo with fat saturation, sagittal T1 spin echo, and oblique axial T2 fast spin echo with fat saturation through the hip. COMPARISON: [facility], CR, XR HIP W PEL IF DONE LT 2V, 09/10/2023, 13:38. FINDINGS: Image quality: Excellent. Bones and joints: Asymmetric moderate left hip joint osteoarthritic changes are seen. There is geographic area of heterogeneously T2 hyperintense and T1 hypointense signal involving weight-bearing portion of femoral head measures up to 3.5 x 3.9 x 1 cm in size. Extensive surrounding edema is seen in left femoral head extending to left femoral neck and intertrochanteric region. No discrete fracture line is noted. No evidence of avascular necrosis of right femoral head is seen. The visualized lower lumbar spine is normally aligned. Tendons and ligaments: Distal left gluteus medius and minimus tendinosis at their insertions on greater trochanter is seen without associated muscle atrophy. The nearby proximal iliotibial band also appears intact. The iliopsoas tendon appears intact, without adjacent bursal fluid collections or evidence for impingement syndrome. The origin of the hamstring tendon is intact at the ischial tuberosity, as well as the associated sacrotuberous ligament. The straight and reflected heads of the rectus femoris muscle origin appear intact, as well as the conjoint tendon. The ligamentum teres appears intact where visualized. No gross loose Labrum and cartilage: Moderate left hip effusion is seen. No gross loose bodies. Extensive loss of articulating cartilage over left femoral head is seen. Signal abnormality throughout superior left hip labrum extending from 11-1 o'clock position is seen suggestive of extensive superior labral tear. The alpha angle of the femur is within normal limits at less than 55 degrees. Soft tissues: Visualized muscles demonstrate normal bulk and internal signal. Quadratus femoris muscle demonstrates no internal edema to suggest ischiofemoral impingement. The proximal sciatic neurovascular bundle appears normal adjacent to the hamstring tendons. No free pelvic fluid. Bladder wall thickness is normal. Genitourinary structures and bowel loops appear normal where visualized. IMPRESSION: 1. Large geographic area of heterogeneously T2 hyperintense signal involving weight-bearing portion of left femoral head consistent with avascular necrosis. Extensive marrow edema in left femoral head and neck extending to intertrochanteric region without discrete fracture line likely represent stress related changes. Asymmetric moderate left hip joint osteoarthritis. 2. Suggestion of extensive superior left hip labral tear at 11 to 1 o'clock position. 3. Distal left gluteus medius and minimus tendinosis. No other muscle or tendon signal abnormalities. Dictated by: Kunal Buenrostro M.D. on 09/10/2023 at 19:58 Approved by: Kunal Buenrostro M.D. on 09/10/2023 at 20:04
[2023-09-10] MEDS: KETOROLAC 30 MG/ML VIAL IM (15:01)
[2023-09-10 16:27] VITALS: BP 147/78; PULSE 82; RESP 18; O2SAT 99
[2023-09-10 19:12] VITALS: BP 121/84; PULSE 73; RESP 16; O2SAT 98
[2023-09-10 21:04] VITALS: BP 128/78; PULSE 83; RESP 97; O2SAT 98
[2023-09-10 21:07] VITALS: BP 125/78; PULSE 70; O2SAT 96
== END 2023-09-10 21:06 | disposition home or self-care (01) ==
PROVIDERS: Emergency Provider Emergency Medicine
DX: M87.88 Other osteonecrosis, other site (principal)
CPT/HCPCS: 73502; 73721; 96372; 99283; J1885

== ENCOUNTER 2024-02-06 17:47 | Inpatient (IN) | payer OTHER, MEDICAID, SELFPAY ==
[2024-02-06 17:53] VITALS: BP 163/89; PULSE 91; RESP 20; TEMP 36.4; O2SAT 98; BMI 29.5
[2024-02-06 18:18] LABS: Add Manual Diff / Slide Review NO; Basophils Absolute Auto 100 /uL (0-100); Basophils Percent Auto 0.4 % (0-2); Eosinophils Absolute Auto 100 /uL (0-450); Eosinophils Percent Auto 0.4 % (2-4); Hematocrit 42.9 % (41-53); Lymphocytes Absolute Auto 2100 /uL (1100-4500); Lymphocytes Percent Auto 12.9 % (25-40); Mean Corpuscular Hemoglobin 33.5 PG (26-34); Mean Corpuscular Volume 95.7 fL (80-100); Monocytes Absolute Auto 1000 /uL (0-900); Neutrophils Absolute Auto 13200 /uL (1500-7000); Neutrophils Percent Auto 80.3 % (50-75); Platelet Count 261 X10^3/uL (150-400); Red Blood Cell Count 4.48 X10^6/uL (4.5-5.9); Red Cell Distribution Width 13.3 % (11.6-14.8); White Blood Cell Count 16.5 X10^3/uL (4.5-11.0)
[2024-02-06 18:42] LABS: Alanine Aminotransferase 52 IU/L (<50); Albumin 4.7 g/dL (3.5-5.0); Albumin Globulin Ratio 1.4 (1.0-2.8); Alkaline Phosphatase 196 U/L (38-126); Aspartate Aminotransferase 122 IU/L (17-59); BUN Creatinine Ratio 7.5 (6-22); Bilirubin Total 0.7 mg/dL (0.2-1.3); Blood Urea Nitrogen 5 mg/dL (9-20); Calcium 8.9 mg/dL (8.4-10.2); Carbon Dioxide 25 mmol/L (22-32); Chloride 99 mmol/L (98-107); Estimated Glomerular Filt Rate > 60 mL/min (>60); Globulin 3.3 g/dL (1.7-4.1); Glucose 117 mg/dL (70-100); HEMOLYSIS < 15 (0-50); Lipase 516 U/L (23-300); Potassium 3.3 mmol/L (3.4-5.1); Sodium 132 mmol/L (137-145)
--- NOTE | 2024-02-06 22:18 | ED_ITS ---
HPI - Abdominal Pain General Chief Complaint: Abdominal Pain Stated Complaint: sob, abd pain Time Seen by Provider: 02/06/24 22:15 Source: patient Mode of arrival: Ambulatory History of Present Illness HPI narrative: 38-year-old male with chronic abdominal pain, on Suboxone regimen, history of diverticulosis, numerous visits at various facilities for abdominal pain, seen 02/05/2024 at [facility] for abdominal pain and had a CT scan and was released, had an ultrasound of the gallbladder as well during that evaluation, advised to use antispasmodics and antacids and stop drinking alcohol. Last drink of alcohol was 2 days ago. He denies history of pancreatitis. He denies history of known ulcers of the stomach or duodenum. He does not feel feverish. He has had continued abdominal pain that seems somewhat increase the last 2 hours. No injury or trauma. No black or red stools. He feels nauseated but not having any recent emesis now taking ondansetron from recent visit. He also has history of smoking, cough, coughed up some blood earlier today small amount blood-tinged sputum. He denies chest pain or shortness of breath. Related Data Home Medications Medication Instructions Recorded Confirmed buprenorphine 8 mg-naloxone 2 mg 2 tab sublingual DAILY 02/07/24 02/07/24 sublingual tablet Previous Rx's Medication Instructions Recorded dicyclomine 20 mg tablet 20 mg PO BID PRN cramping pain #10 06/05/20 tabs pantoprazole 20 mg tablet,delayed 20 mg PO DAILY #14 tabs 06/05/20 release ondansetron 4 mg disintegrating 4 mg PO Q8H PRN nausea and 11/08/22 tablet vomiting #20 tabs Allergies Allergy/AdvReac Type Severity Reaction Status Date / Time No Known Drug Allergies Allergy Verified 11/08/22 15:23 Review of Systems Review of Systems Narrative: See HPI Constitutional Constitutional: Denies chills, Denies fever(s), Denies frequent falls and Denies weakness ENT Ears, Nose, Mouth, and Throat: Denies neck pain and Denies sore throat Cardiovascular Cardiovascular: Denies chest pain and Denies leg edema Respiratory Respiratory: Reports cough Comments: Recent cough with some shortness of breath, blood-tinged sputum, no chest injuries Gastrointestinal Gastrointestinal: Reports abdominal pain, Denies melena, Denies hematochezia, Denies coffee ground emesis, Reports nausea, Reports vomiting and Denies hematemesis Genitourinary Genitourinary: Denies difficulty urinating and Denies dysuria Musculoskeletal Musculoskeletal: Reports system reviewed and no additional complaints, except as documented and Denies neck pain Integumentary/Breasts Skin/Breast: Denies rash Neurologic Neurologic: Denies confusion, Denies frequent falls and Denies weakness Psychiatric Psychiatric: Denies confusion Patient History Medical History Colitis Social History household members: significant other Smoking Status: Current every day smoker Smoking Status: Current every day smoker tobacco type: cigarettes alcohol intake frequency: 3 or more drinks per day Alcohol type: beer Substance Use Type: does not use and former substance user Exam Initial Vital Signs Initial Vital Signs: Vital Signs Temperature 97.5 F L 02/06/24 17:53 Pulse Rate 91 H 02/06/24 17:53 Respiratory Rate 20 02/06/24 17:53 Blood Pressure 163/89 H 02/06/24 17:53 Pulse Oximetry 98 02/06/24 17:53 Oxygen Delivery Method Room Air 02/06/24 17:53 Const General: cooperative HENOK Head: atraumatic Face and sinus: face symmetric Mouth: moist mucous membranes Throat: tonsils normal and uvula midline Eyes Eyelids: eyelids normal Conjunctivae: conjunctivae normal Sclera: sclerae normal Neck Neck: trachea midline Chest Chest: normal inspection of the chest Other: No chest wall discomfort or obvious dramatic changes Resp Effort & Inspection: normal respiratory effort Auscultation: clear to auscultation bilaterally, no rhonchi and no wheezes Cardio Rate: regular rate Rhythm: regular rhythm GI Other: Tenderness to epigastrium and supra umbilical area abdomen, nondistended, no guarding or rebound tenderness, active bowel tones. Skin General: no rashes or lesions noted Extrem General: no pedal edema and no calf tenderness Psych Attitude: cooperative Course Course Course Narrative: Recent abdominal pain workup alternate facility with CT abdomen and pelvis, still having pain, increasing, tenderness mid-abdomen and epigastrium predominant, mild lipase elevation, renal function adequate. CT abdomen and pelvis imaging requested with IV contrast. Patient also admits to recent cough with blood-tinged sputum. Respiratory panel requested. CT angio PE protocol added as well. Orders Ordered: ED Orders 02/06/24 22:32 CT abdomen pelvis w con Stat CT angio chest PE protocol Stat 02/06/24 22:56 Urine Microscopic Stat 02/06/24 22:57 Respiratory Panel (Film Array) Stat Famotidine (Famotidine 20 Mg/2 Ml Vial) 20 mg IV NOW [facility] Last Admin: 02/06/24 22:41 Dose: 20 mg Documented By: MARCUS Hydromorphone HCl (Hydromorphone 1 Mg Inj) 1 mg IV Q1H PRN PRN Reason: Pain, Severe (7-10) Last Admin: 02/07/24 03:05 Dose: 1 mg Documented By: IAN Sodium Chloride (Normal Saline 0.9%) 1,000 mls @ 200 mls/hr IV CONT [facility] Last Admin: 02/07/24 02:09 Dose: 200 mls/hr Documented By: IAN Naloxone HCl (Naloxone 0.4 Mg/Ml Vial) 0.2 mg IV Q2MIN PRN PRN Reason: Opiate Reversal Ondansetron HCl (Ondansetron 4 Mg Odt) 4 mg PO NOW PRN PRN Reason: Nausea And Vomiting Ondansetron HCl (Ondansetron 4 Mg/2 Ml Inj) 4 mg IV NOW PRN PRN Reason: Nausea And Vomiting Last Admin: 02/06/24 22:43 Dose: 4 mg Documented By: MARCUS Ondansetron HCl (Ondansetron 4 Mg/2 Ml Inj) 4 mg IV Q2HR PRN PRN Reason: Nausea And Vomiting Pantoprazole Sodium (Pantoprazole 40 Mg Vial) 20 mg IV DAILY [facility] Discontinued Medications Hydromorphone HCl (Hydromorphone 0.5 Mg Inj) 0.5 mg IV NOW ONE Stop: 02/06/24 22:35 Last Admin: 02/06/24 22:44 Dose: 0.5 mg Documented By: MARCUS Hydromorphone HCl (Hydromorphone 0.5 Mg Inj) 0.5 mg IV NOW ONE Stop: 02/07/24 00:22 Last Admin: 02/07/24 00:24 Dose: 0.5 mg Documented By: MARCUS Hydromorphone HCl (Hydromorphone 0.5 Mg Inj) 0.5 mg IV Q2H PRN PRN Reason: Pain, Severe (7-10) Last Admin: 02/07/24 02:04 Dose: 0.5 mg Documented By: IAN Sodium Chloride (Normal Saline 0.9%) 500 mls @ 1,000 mls/hr IV BOLUS ONE Stop: 02/06/24 23:03 Last Infusion: 02/06/24 23:34 Dose: Infused Documented By: Admin: 02/06/24 22:41 Dose: 1,000 mls/hr Documented By: MARCUS POTASSIUM CHLORIDE IN WATER (Potassium Cl 10 Meq/100 Ml Abby) 10 meq in 100 mls @ 100 mls/hr IV Q1H DIAZ Stop: 02/07/24 02:44 Last Infusion: 02/07/24 04:14 Dose: Infused Documented By: Admin: 02/07/24 03:05 Dose: 100 mls/hr Documented By: Infusion: 02/07/24 01:47 Dose: Infused Documented By: Infusion: 02/07/24 01:00 Dose: 100 mls/hr Documented By: Admin: 02/07/24 00:46 Dose: 100 mls/hr Documented By: MARCUS Reevaluation(s) Reevaluation #1: Liver functions show AST greater than ALT mild elevation, normal T bili. Lipase 500s mildly elevated. CT abdomen and pelvis shows cass pancreatic inflammatory change, likely acute pancreatitis. History of alcohol abuse, likely alcoholic pancreatitis. CT angiogram chest shows no acute changes. Respiratory pathogens panel negative. Potassium 3.3 noted, NPO, IV potassium chloride. We will contact hospitalist regarding admission Reevaluation #2: Case discussed with hospitalist Dr. Narayan, who accepts patient for admission Vital Signs Vital signs: Vital Signs - 8 hr 02/06/24 17:53 Temperature 97.5 F L Pulse Rate 91 H Respiratory Rate 20 Blood Pressure 163/89 H Pulse Oximetry 98 Oxygen Delivery Method Room Air MDM - Abdominal Pain Lab Data 02/06/24 18:00 02/06/24 18:00 Labs: Lab Results 02/06/24 02/06/24 02/06/24 Range/Units 18:00 22:56 22:57 WBC 16.5 H (4.5-11.0) X10^3/uL RBC 4.48 L (4.5-5.9) X10^6/uL Hgb 15.0 (13.5-17.5) g/dL Hct 42.9 (41-53) % MCV 95.7 (80-100) fL MCH 33.5 (26-34) PG MCHC 35.0 (30-36) % RDW 13.3 (11.6-14.8) % Plt Count 261 (150-400) X10^3/uL Neut % (Auto) 80.3 H (50-75) % Lymph % (Auto) 12.9 L (25-40) % [place] % (Auto) 6.0 (3-14) % Eos % (Auto) 0.4 L (2-4) % Baso % (Auto) 0.4 (0-2) % Neut # (Auto) 88225 H (8442-1476) /uL Lymph # (Auto) 2100 (4793-5695) /uL [place] # (Auto) 1000 H (0-900) /uL Eos # (Auto) 100 (0-450) /uL Baso # (Auto) 100 (0-100) /uL Sodium 132 L (137-145) mmol/L Potassium 3.3 L (3.4-5.1) mmol/L Chloride 99 (98-107) mmol/L Carbon Dioxide 25 (22-32) mmol/L BUN 5 L (9-20) mg/dL Creatinine 0.67 (0.66-1.25) mg/dL Estimated GFR > 60 (>60) mL/min BUN/Creatinine Ratio 7.5 (6-22) Glucose 117 H (70-100) mg/dL Calcium 8.9 (8.4-10.2) mg/dL Total Bilirubin 0.7 (0.2-1.3) mg/dL AST 122 H (17-59) IU/L ALT 52 H (<50) IU/L Alkaline Phosphatase 196 H (38-126) U/L Total Protein 8.0 (6.3-8.2) g/dL Albumin 4.7 (3.5-5.0) g/dL Globulin 3.3 (1.7-4.1) g/dL Albumin/Globulin Ratio 1.4 (1.0-2.8) Lipase 516 H (23-300) U/L Urine RBC 0-1/hpf (0-5/HPF) Urine WBC None seen (0-5/HPF) Ur Squamous Epith Cells 0-1 /hpf (0-5/HPF) Urine Bacteria None seen (None) Urine Mucus 2+ H (Negative) Ur Culture Indicated? Cult not indicated Vol Urine Centrifuged 10ml (spun) Ethyl Alcohol < 10 ( - 10) mg/dL Chlamy pneumoniae PCR Not detected (Not Detect) Adenovirus (PCR) Not detected (Not Detect) B.parapertussis DNA PCR Not detected (Not Detecte) Coronavirus OC43 (PCR) Not detected (Not Detect) Coronavirus HKU1 (PCR) Not detected (Not Detect) Coronavirus 229E (PCR) Not detected (Not Detect) SARS-CoV-2 (PCR) Not detected (Not Detecte) Coronavirus NL63 (PCR) Not detected (Not Detect) Human Metapneumovir PCR Not detected (Not Detect) Influenza Type A (PCR) Not detected (Not Detect) Influenza Type B (PCR) Not detected (Not Detect) M. pneumoniae (PCR) Not detected (Not Detect) Parainfluenza 1 (PCR) Not detected (Not Detect) Parainfluenza 2 (PCR) Not detected (Not Detect) Parainfluenza 3 (PCR) Not detected (Not Detect) Parainfluenza 4 (PCR) Not detected (Not Detect) RSV (PCR) Not detected (Not Detect) Entero/Rhino (PCR) Not detected (Not Detect) Point of care testing: Urine Dip Bedside Urine Glucose Negative Bedside Urine Bilirubin - Negative Bedside Urine Ketone - Negative Urine Specific [place] 1.030 Bedside Urine Occult Blood - Negative Bedside Urine pH 6.0 Bedside Urine Protein +/- 15 Bedside Urine Urobilinogen - Negative Bedside Urine Nitrite - Negative Bedside Urine Leukocytes - Negative Esterase ECG Data Attestation: I personally reviewed and interpreted this ECG as follows: Interpretation: Normal sinus rhythm with rate of 69, no obvious ST segment elevation or depression changes. T-wave inversions noted in lead 3 upright in lead 2, flat lead F, T-wave inversions lateral leads V4 through V6 but not in lead 1. None for comparison available in cardio senior [employer] Critical Care Time Critical Care Time Critical Care Time: Yes Total Critical Care Time: 35 Attestation: The high probability of a clinically significant, sudden or life threatening deterioration of the [abdominal pelvic/GI] system(s) required my full and direct attention, intervention and personal management. The aggregate critical care time was [35] minutes. This time is in addition to time spent performing reported procedures but includes the following: [X] Data Review and interpretation [X] Patient assessment and monitoring of vital signs [X] Documentation [X] Medication orders and management Discharge Plan Departure Patient Disposition: Admitted As Inpatient Clinical Impression: Acute alcoholic pancreatitis, Acute hypokalemia, History of alcohol use Admit Date/Time: 02/07/24 00:26 Admit Provider: Lamberto Walton
--- NOTE | 2024-02-06 22:32 | DI.CT.S_ITS ---
PROCEDURE: CT ABDOMEN PELVIS W CON INDICATIONS: abd pain, inc Lipase TECHNIQUE: After the administration of intravenous contrast, axial sections acquired from the lung bases to the pubic symphysis. Coronal and sagittal reformats were performed. For radiation dose reduction, the following was used: automated exposure control, adjustment of mA and/or kV according to patient size. COMPARISON: None. FINDINGS: Image quality: Diagnostic. Lower Chest: No significant findings. ABDOMEN: Liver: No solid mass. Gallbladder: Gallbladder sludge versus small stones. No wall thickening or pericholecystic edema to suggest acute cholecystitis. Biliary ducts: No biliary dilation. Pancreas: Peripancreatic fat stranding. Homogeneous enhancement of the pancreas. No acute peripancreatic collection. Spleen: Size is within normal limits. Adrenal Glands: No adrenal nodules. Kidneys and Ureters: No hydronephrosis. No solid mass. No complex renal cystic lesion which requires follow up. Stomach and Bowel: Normal colonic caliber, without significant wall thickening. Peritoneum: No abnormal intraperitoneal fluid. No free air. Ventral Wall: No significant ventral hernia. Abdominal Nodes: No retroperitoneal or mesenteric adenopathy by size criteria. Vessels: Aorta and inferior vena cava are normal in size. No splenic vein occlusion. PELVIS: Pelvic Organs: Unremarkable. Bladder: No bladder wall thickening, accounting for underdistention. Pelvic Nodes: No enlarged lymph nodes. Miscellaneous: No inguinal hernias are seen. Bones: Left total hip arthroplasty. IMPRESSION: Acute interstitial pancreatitis without vascular complication or acute peripancreatic collection. Dictated by: Nico Moore M.D. on 02/06/2024 at 23:14 Approved by: Nico Moore M.D. on 02/06/2024 at 23:18
--- NOTE | 2024-02-06 22:32 | DI.CT.S_ITS ---
PROCEDURE: CT ANGIO CHEST PE PROTOCOL INDICATIONS: coughing up blood TECHNIQUE: After the administration of intravenous contrast, 2 mm thick sections acquired from the pulmonary apices to the posterior costophrenic angles. 3-dimensional maximum intensity projection (MIP) coronal and sagittal reformats were then acquired through the thorax. For radiation dose reduction, the following was used: automated exposure control, adjustment of mA and/or kV according to patient size. COMPARISON: None. FINDINGS: Image quality: Diagnostic. Pulmonary arteries: Pulmonary arteries are normal in size, and demonstrate no intraluminal filling defects to suggest central pulmonary embolism. Lower Neck: No enlarged lymph nodes. Thyroid: No thyroid nodules which require sonographic follow up, per consensus guidelines. Axillae: No enlarged lymph nodes. Chest Wall: Unremarkable. Bones: Unremarkable. Lungs and Pleura: No pneumothorax or pleural effusions. No consolidation or suspicious nodules. Heart: Heart size is normal. No pericardial effusion. Thoracic Vessels: No aortic aneurysm. Mediastinum and Avani: No enlarged lymph nodes. Esophagus: No wall thickening. Small hiatal hernia. Upper Abdomen: Separately dictated. IMPRESSION: No pulmonary embolus. No acute cardiopulmonary process. Please see dedicated abdomen pelvis CT for pertinent information. Dictated by: Nico Moore M.D. on 02/06/2024 at 23:12 Approved by: Nico Moore M.D. on 02/06/2024 at 23:14
[2024-02-06] MEDS: FAMOTIDINE 20 MG/2 ML VIAL IV (22:41)
[2024-02-06] MEDS: SODIUM CHLORIDE 0.9% 500 ML 1000 ML IV (22:41)
[2024-02-06] MEDS: ONDANSETRON 4 MG/2 ML INJ IV (22:43)
[2024-02-06] MEDS: HYDROMORPHONE 0.5 MG INJ IV (22:44)
[2024-02-06 23:09] LABS: Bacteria Urine None Seen; Mucus Urine 2+ (Negative); RBC Urine 0-1/HPF (0-5/HPF); Urine Volume 10mL (spun); WBC Urine None Seen (0-5/HPF)
[2024-02-06 23:10] LABS: Culture Indicated Urine Cult Not Indicated; Squamous Epithelial Cell Urine 0-1 /HPF (0-5/HPF)
[2024-02-06 23:25] LABS: Ethanol (ETOH) < 10 mg/dL
[2024-02-06 23:50] LABS: Adenovirus Not Detected (Not Detect); B. parapertussis Not Detected (Not Detecte); Bordetella pertussis Not Detected (Not Detect); Chlamydophila pneumoniae Not Detected (Not Detect); Coronavirus 229E Not Detected (Not Detect); Coronavirus HKU1 Not Detected (Not Detect); Coronavirus NL 63 Not Detected (Not Detect); Coronavirus OC43 Not Detected (Not Detect); Human Metapneumovirus Not Detected (Not Detect); Human Rhinovirus/Enterovirus Not Detected (Not Detect); Influenza A Not Detected (Not Detect); Influenza B Not Detected (Not Detect); Mycoplasma pneumoniae Not Detected (Not Detect); Parainfluenza Virus 1 Not Detected (Not Detect); Parainfluenza Virus 2 Not Detected (Not Detect); Parainfluenza Virus 3 Not Detected (Not Detect); Parainfluenza Virus 4 Not Detected (Not Detect); Respiratory Syncytial Virus Not Detected (Not Detect); SARS- CoV-2 Not Detected (Not Detecte)
[2024-02-07] MEDS: HYDROMORPHONE 0.5 MG INJ IV ×2 (00:24→02:04)
[2024-02-07] MEDS: POTASSIUM CHLORIDE IN WATER 10 MEQ/100 ML PIGGYBACK 100 MEQ IV ×2 (00:46→03:05)
[2024-02-07 01:05] VITALS: BP 168/103; PULSE 77; RESP 18; TEMP 36.8; O2SAT 96
[2024-02-07 01:28] VITALS: BMI 29.5
--- NOTE | 2024-02-07 01:38 | P.HP_ITS ---
History of Present Illness History of Present Illness Date Patient Seen: 02/07/24 Time Patient Seen: 01:00 Chief complaint: sob, abd pain Narrative: 38 y/o with PMH of drug abuse and alcoholism, presented to ED with epigastric and LUQ pain, radiating to back and diagnosed with alcoholic pancreatitis. He recently had multiple visits with different providers complaining on episodic abdominal pain and tenderness. On one of such visits he was prescibed Bentyl. He also takes PPI for GERD. Todays pain is much worse and he is unable to hold PO. Admitted for IVFs, antiemetics, pain management. [facility] Medical History Colitis Social History household members: significant other Smoking Status: Current every day smoker Meds Home Medications and Allergies Home Medications Medication Instructions Recorded Confirmed Type dicyclomine 20 mg tablet 20 mg PO BID PRN cramping pain #10 06/05/20 02/07/24 Rx tabs pantoprazole 20 mg tablet,delayed 20 mg PO DAILY #14 tabs 06/05/20 02/07/24 Rx release ondansetron 4 mg disintegrating 4 mg PO Q8H PRN nausea and 11/08/22 02/07/24 Rx tablet vomiting #20 tabs buprenorphine 8 mg-naloxone 2 mg 2 tab sublingual DAILY 02/07/24 02/07/24 History sublingual tablet Allergies Allergy/AdvReac Type Severity Reaction Status Date / Time No Known Drug Allergies Allergy Verified 11/08/22 15:23 Review of Systems Constitutional Comments: he had fever Respiratory Comments: short of breath Gastrointestinal Comments: see HPI Integumentary/Breasts Comments: w/o jaundice Exam Vital Signs (past 8 hours): - 02/06/24 17:53 Temperature 97.5 F L Pulse Rate 91 H Respiratory Rate 20 Blood Pressure 163/89 H Pulse Oximetry 98 Oxygen Delivery Method Room Air Oxygen Delivery Method Room Air Const Other: sitting in bed in no distress HENMT Other: normocephalic Resp Other: normal respiratory effort Cardio Other: RRR GI Other: w/o distension tender epigastrium Skin Other: not jaundiced Psych Other: anxious Objective Labs 02/06/24 18:00 02/06/24 18:00 Labs: Laboratory Results - last 24 hr 02/06/24 02/06/24 02/06/24 18:00 22:56 22:57 WBC 16.5 H RBC 4.48 L Hgb 15.0 Hct 42.9 MCV 95.7 MCH 33.5 MCHC 35.0 RDW 13.3 Plt Count 261 Neut % (Auto) 80.3 H Lymph % (Auto) 12.9 L [place] % (Auto) 6.0 Eos % (Auto) 0.4 L Baso % (Auto) 0.4 Neut # (Auto) 71273 H Lymph # (Auto) 2100 [place] # (Auto) 1000 H Eos # (Auto) 100 Baso # (Auto) 100 Sodium 132 L Potassium 3.3 L Chloride 99 Carbon Dioxide 25 BUN 5 L Creatinine 0.67 Estimated GFR > 60 BUN/Creatinine Ratio 7.5 Glucose 117 H Calcium 8.9 Total Bilirubin 0.7 AST 122 H ALT 52 H Alkaline Phosphatase 196 H Total Protein 8.0 Albumin 4.7 Globulin 3.3 Albumin/Globulin Ratio 1.4 Lipase 516 H Urine RBC 0-1/hpf Urine WBC None seen Ur Squamous Epith Cells 0-1 /hpf Urine Bacteria None seen Urine Mucus 2+ H Ur Culture Indicated? Cult not indicated Vol Urine Centrifuged 10ml (spun) Ethyl Alcohol < 10 Chlamy pneumoniae PCR Not detected Adenovirus (PCR) Not detected B.parapertussis DNA PCR Not detected Coronavirus OC43 (PCR) Not detected Coronavirus HKU1 (PCR) Not detected Coronavirus 229E (PCR) Not detected SARS-CoV-2 (PCR) Not detected Coronavirus NL63 (PCR) Not detected Human Metapneumovir PCR Not detected Influenza Type A (PCR) Not detected Influenza Type B (PCR) Not detected M. pneumoniae (PCR) Not detected Parainfluenza 1 (PCR) Not detected Parainfluenza 2 (PCR) Not detected Parainfluenza 3 (PCR) Not detected Parainfluenza 4 (PCR) Not detected RSV (PCR) Not detected Entero/Rhino (PCR) Not detected Assessment & Plan Assessment and plan (1) Acute alcoholic pancreatitis: Status: Acute (2) Alcoholism: Status: Acute (3) Acute hypokalemia: Status: Acute (4) Opiate abuse, episodic: Status: Acute (5) Acid reflux: Status: Inactive Assessment & Plan narrative: Alcoholic Pancreatitis - recurrent - NPO, clear liquids could be tried later in the day - antiemetics, pain management - will be problematic - advised to avoid alcohol Opiate Abuse - nurse found fentanyl in the room - at home on suboxan - counseling - can complicate pain management Hypokalemia - supplemented - monitored electrolytes GERD- PPI DVT prophylaxis - SCDs
[2024-02-07] MEDS: SODIUM CHLORIDE 0.9% 1,000 ML 200 ML IV ×4 (02:09→21:53)
--- NOTE | 2024-02-07 02:53 | PC.ADMIT ---
General Delivery Admission Note: The patient,Reymundo Pagan,38 y/o, was given written information regarding hospital policies, unit procedures and contact persons. Patient's smoking status: Current every day smoker. Vital Signs - 8 hr 02/07/24 01:05 Temperature 98.3 F Pulse Rate 77 Respiratory Rate 18 Blood Pressure 168/103 H Pulse Oximetry 96 Patient up from ed via wheelchair. Patient able to get out of wc and ambulate to ac bed. Patient w/ mild agitation d/t abd pain. Did want to leave and go to car but stayed d/t not being able to go down to car while admitted. patient is A&O, calm at this time. Pain is not controlled, MD aware and order changed.
[2024-02-07] MEDS: HYDROMORPHONE 1 MG INJ IV ×3 (03:05→09:03)
[2024-02-07 08:00] VITALS: BP 150/100; PULSE 100; RESP 18; TEMP 37.1; O2SAT 94
[2024-02-07] MEDS: NICOTINE 21 MG PATCH TOP (08:57)
[2024-02-07] MEDS: PANTOPRAZOLE 40 MG VIAL 20 MG IV (08:57)
[2024-02-07 09:21] LABS: Lipase 1343 U/L (23-300)
[2024-02-07 09:42] LABS: Add Manual Diff / Slide Review NO; Basophils Absolute Auto 0 /uL (0-100); Basophils Percent Auto 0.2 % (0-2); Eosinophils Absolute Auto 200 /uL (0-450); Eosinophils Percent Auto 1.4 % (2-4); Hematocrit 42.6 % (41-53); Hemoglobin 14.7 g/dL (13.5-17.5); Lymphocytes Absolute Auto 1800 /uL (1100-4500); Lymphocytes Percent Auto 15.3 % (25-40); Mean Corpuscular HGB Conc 34.5 % (30-36); Mean Corpuscular Hemoglobin 33.7 PG (26-34); Mean Corpuscular Volume 97.6 fL (80-100); Monocytes Absolute Auto 700 /uL (0-900); Monocytes Percent Auto 5.8 % (3-14); Neutrophils Absolute Auto 9200 /uL (1500-7000); Neutrophils Percent Auto 77.3 % (50-75); Platelet Count 192 X10^3/uL (150-400); Red Blood Cell Count 4.37 X10^6/uL (4.5-5.9); Red Cell Distribution Width 13.6 % (11.6-14.8); White Blood Cell Count 11.9 X10^3/uL (4.5-11.0)
[2024-02-07 09:48] LABS: Alanine Aminotransferase 38 IU/L (<50); Albumin 3.7 g/dL (3.5-5.0); Albumin Globulin Ratio 1.3 (1.0-2.8); Alkaline Phosphatase 155 U/L (38-126); Aspartate Aminotransferase 57 IU/L (17-59); Bilirubin Total 0.9 mg/dL (0.2-1.3); Blood Urea Nitrogen 4 mg/dL (9-20); Calcium 8.4 mg/dL (8.4-10.2); Carbon Dioxide 27 mmol/L (22-32); Chloride 105 mmol/L (98-107); Estimated Glomerular Filt Rate > 60 mL/min (>60); Globulin 2.9 g/dL (1.7-4.1); Glucose 110 mg/dL (70-100); HEMOLYSIS < 15 (0-50); Magnesium 2.2 mg/dL (1.6-2.3); Potassium 3.5 mmol/L (3.4-5.1); Sodium 136 mmol/L (137-145); Total Protein 6.6 g/dL (6.3-8.2)
--- NOTE | 2024-02-07 11:51 | DI.US.S_ITS ---
PROCEDURE: US ABDOMEN LIMITED INDICATIONS: acute pancreatitis, assess gallbladder and biliary tree TECHNIQUE: Real-time scanning was performed of the abdominal and retroperitoneal organs, with image documentation. COMPARISON: None. FINDINGS: Liver: Hepatic parenchyma shows diffuse increased echogenicity consistent with fatty infiltration. Generalized hepatomegaly. Flow in the main portal vein is normal. Gallbladder: Biliary sludge without stones. No gallbladder wall thickening or pericholecystic fluid Common Bile Duct: 4 mm. Pancreas: Unremarkable as visualized Right Kidney: Appropriate in size and echotexture. No evidence of hydronephrosis. No shadowing calculi. No solid or cystic mass lesion. IMPRESSION: 1. Biliary sludge without cholelithiasis or evidence of cholecystitis * >> Approved by: Yash Reyes M.D. on 02/07/2024 at 12:11
[2024-02-07] MEDS: HYDROMORPHONE 1 MG INJ 2 MG IV ×5 (12:13→23:43)
[2024-02-07] MEDS: POTASSIUM CHLORIDE 20 MEQ TAB 40 MEQ PO (12:13)
--- NOTE | 2024-02-07 12:29 | CM.DANOTE ---
DCP Assessment Note Pt is a 38yo male, resident of [place], presented to the ED with shortness of breath and abdominal pain. Pt was admitted for alcoholic pancreatitis. Pt reports he does not have a primary care provider at this time (Eleuterio states pt's last PCP was Loretta Lugo at [facility]) and insurance is [email or web address], [employer], and Medicaid. Reviewed chart and discussed with pt's care team for pt's medical status and initial discharge needs. WATER FABRICATOR OPERATOR met w/patient at bedside; introduced self and role. Pt was found lying in bed, alert and oriented, guarded in affect initially. Pt was cooperative with assessment questions but complained of 20/10 pain. Pt confirmed that he is currently homeless with care home with ex-girlfriend and mother at their house in [place]. Pt denied any dc needs at this time, requested this WATER FABRICATOR OPERATOR forward the message to his nurse of his pain levels. Plan: Anticipating dc back to living situation in community when medically cleared and pain managed. CM team will plan to follow clinical course closely for assessment of need and coordination of discharge plan. ALICE Berry Discharge Planning/Care Management CM Discharge Assessment Start: 02/07/24 12:25 Freq: Status: Active Protocol: Document 02/07/24 12:25 MW (Rec: 02/07/24 12:29 MW [id number]) Discharge Planning Assessment Assigned Real Estate Administrator FABIANA Bang DPOA/Assigned Designee Name Aunt [facility] Contact Information [phone] Advance Directives? No History Provided By Patient,Medical Record Has Patient been admitted in last 30 No days? Prior Living Arrangements House Comment Pt lives in a house in [place] owned by ex-girlfriend' s mother and with ex- girlfriend. Household Members significant other,other Type of transporation used prior to Relies on Others admit Independent with ADL's Yes Is patient alert and oriented? Yes Caregiver for Another No Barriers to Discharge No Discharge Plan Home Referrals Initiated None needed Whiteboard Updated in Patient Room with Yes name and ext. # of Real Estate Administrator Comment [phone] Please Provide Date Initial DC 02/07/24 Assessment Was Performed Next Review Type Continued Stay Review
[2024-02-07 14:02] VITALS: BP 118/88; PULSE 122; RESP 16; O2SAT 95
--- NOTE | 2024-02-07 14:08 | DI.RAD.S_ITS ---
PROCEDURE: XR CHEST 1V INDICATIONS: dyspnea TECHNIQUE: One view of the chest was acquired. COMPARISON: None. FINDINGS: Surgical changes and devices: None. Lungs and pleura: Lungs are clear. No pleural effusions or pneumothorax. Mediastinum: Mediastinal contours appear normal. Heart size is normal. Bones and chest wall: No suspicious bony lesions. Overlying soft tissues appear unremarkable. Old healed right clavicular fracture IMPRESSION: No acute cardiopulmonary abnormality is seen. Approved by: Yash Reyes M.D. on 02/07/2024 at 14:34
[2024-02-07] MEDS: BUPRENORPHINE/NALOXONE 8MG/2MG 1 TAB 2 TAB SL (14:13)
--- NOTE | 2024-02-07 14:21 | PC.NURSE ---
pt reports hard to breath this morning and now. sat 95%, HR 122, RR16. msg sent to Dr. Sawyer and CXR done.
--- NOTE | 2024-02-07 16:19 | P.HP_ITS ---
History of Present Illness History of Present Illness Date Patient Seen: 02/07/24 Chief complaint: sob, abd pain Narrative: From overnight provider: 38 y/o with PMH of drug abuse and alcoholism, presented to ED with epigastric and LUQ pain, radiating to back and diagnosed with alcoholic pancreatitis. He recently had multiple visits with different providers complaining on episodic abdominal pain and tenderness. On one of such visits he was prescibed Bentyl. He also takes PPI for GERD. Todays pain is much worse and he is unable to hold PO. Admitted for IVFs, antiemetics, pain management. Further info: Patient this morning says his abd pain is terrible and he hasn't had anything like this before. He wants his suboxone restarted. [facility] Medical History Colitis Social History household members: significant other and other Smoking Status: Current every day smoker Meds Home Medications and Allergies Home Medications Medication Instructions Recorded Confirmed Type dicyclomine 20 mg tablet 20 mg PO BID PRN cramping pain #10 06/05/20 02/07/24 Rx tabs pantoprazole 20 mg tablet,delayed 20 mg PO DAILY #14 tabs 06/05/20 02/07/24 Rx release ondansetron 4 mg disintegrating 4 mg PO Q8H PRN nausea and 11/08/22 02/07/24 Rx tablet vomiting #20 tabs buprenorphine 8 mg-naloxone 2 mg 2 tab sublingual DAILY 02/07/24 02/07/24 History sublingual tablet Allergies Allergy/AdvReac Type Severity Reaction Status Date / Time No Known Drug Allergies Allergy Verified 11/08/22 15:23 Review of Systems Constitutional Comments: he had fever Respiratory Comments: short of breath Gastrointestinal Comments: see HPI Integumentary/Breasts Comments: w/o jaundice Exam Vital Signs (past 8 hours): - 02/07/24 14:02 Pulse Rate 122 H Respiratory Rate 16 Blood Pressure 118/88 Pulse Oximetry 95 Oxygen Delivery Method Room Air Oxygen Flow Rate 0 Const Other: mod distress HENMT Other: normocephalic Resp Other: normal respiratory effort Cardio Other: RRR GI Other: guarding tender epigastrium Skin Other: not jaundiced Psych Other: anxious Objective Labs 02/07/24 07:42 02/07/24 07:42 Labs: Laboratory Results - last 24 hr 02/06/24 02/06/24 02/06/24 18:00 22:56 22:57 WBC 16.5 H RBC 4.48 L Hgb 15.0 Hct 42.9 MCV 95.7 MCH 33.5 MCHC 35.0 RDW 13.3 Plt Count 261 Neut % (Auto) 80.3 H Lymph % (Auto) 12.9 L [place] % (Auto) 6.0 Eos % (Auto) 0.4 L Baso % (Auto) 0.4 Neut # (Auto) 20374 H Lymph # (Auto) 2100 [place] # (Auto) 1000 H Eos # (Auto) 100 Baso # (Auto) 100 Sodium 132 L Potassium 3.3 L Chloride 99 Carbon Dioxide 25 BUN 5 L Creatinine 0.67 Estimated GFR > 60 BUN/Creatinine Ratio 7.5 Glucose 117 H Calcium 8.9 Magnesium Total Bilirubin 0.7 AST 122 H ALT 52 H Alkaline Phosphatase 196 H Total Protein 8.0 Albumin 4.7 Globulin 3.3 Albumin/Globulin Ratio 1.4 Lipase 516 H Urine RBC 0-1/hpf Urine WBC None seen Ur Squamous Epith Cells 0-1 /hpf Urine Bacteria None seen Urine Mucus 2+ H Ur Culture Indicated? Cult not indicated Vol Urine Centrifuged 10ml (spun) Ethyl Alcohol < 10 Chlamy pneumoniae PCR Not detected Adenovirus (PCR) Not detected B.parapertussis DNA PCR Not detected Coronavirus OC43 (PCR) Not detected Coronavirus HKU1 (PCR) Not detected Coronavirus 229E (PCR) Not detected SARS-CoV-2 (PCR) Not detected Coronavirus NL63 (PCR) Not detected Human Metapneumovir PCR Not detected Influenza Type A (PCR) Not detected Influenza Type B (PCR) Not detected M. pneumoniae (PCR) Not detected Parainfluenza 1 (PCR) Not detected Parainfluenza 2 (PCR) Not detected Parainfluenza 3 (PCR) Not detected Parainfluenza 4 (PCR) Not detected RSV (PCR) Not detected Entero/Rhino (PCR) Not detected 02/07/24 07:42 WBC 11.9 H RBC 4.37 L Hgb 14.7 Hct 42.6 MCV 97.6 MCH 33.7 MCHC 34.5 RDW 13.6 Plt Count 192 Neut % (Auto) 77.3 H Lymph % (Auto) 15.3 L [place] % (Auto) 5.8 Eos % (Auto) 1.4 L Baso % (Auto) 0.2 Neut # (Auto) 9200 H Lymph # (Auto) 1800 [place] # (Auto) 700 Eos # (Auto) 200 Baso # (Auto) 0 Sodium 136 L Potassium 3.5 Chloride 105 Carbon Dioxide 27 BUN 4 L Creatinine 0.67 Estimated GFR > 60 BUN/Creatinine Ratio 6.0 Glucose 110 H Calcium 8.4 Magnesium 2.2 Total Bilirubin 0.9 AST 57 ALT 38 Alkaline Phosphatase 155 H Total Protein 6.6 Albumin 3.7 Globulin 2.9 Albumin/Globulin Ratio 1.3 Lipase 1343 H D Urine RBC Urine WBC Ur Squamous Epith Cells Urine Bacteria Urine Mucus Ur Culture Indicated? Vol Urine Centrifuged Ethyl Alcohol Chlamy pneumoniae PCR Adenovirus (PCR) B.parapertussis DNA PCR Coronavirus OC43 (PCR) Coronavirus HKU1 (PCR) Coronavirus 229E (PCR) SARS-CoV-2 (PCR) Coronavirus NL63 (PCR) Human Metapneumovir PCR Influenza Type A (PCR) Influenza Type B (PCR) M. pneumoniae (PCR) Parainfluenza 1 (PCR) Parainfluenza 2 (PCR) Parainfluenza 3 (PCR) Parainfluenza 4 (PCR) RSV (PCR) Entero/Rhino (PCR) Assessment & Plan Assessment & Plan narrative: Alcoholic Pancreatitis - recurrent, no evidence of gallstones on abd US or CBD dilation, LFT's and T- bili normal - NPO with ice chips - antiemetics, pain management-difficult to control - advised to avoid alcohol Opiate Abuse - nurse found fentanyl in the room - continue home suboxone - counseling - IV dilaudid PRN Hypokalemia - supplemented - monitored electrolytes GERD- PPI DVT prophylaxis - SCDs Dispo: 2 days to improve abd pain from pancreatitis.
[2024-02-07 20:22] VITALS: BP 138/88; PULSE 98; RESP 18; O2SAT 97
[2024-02-07 22:01] LABS: Troponin I < 0.012 ng/mL (0.01-0.034)
[2024-02-07] MEDS: LORazepam 2 MG/ML INJ 0.5 MG IV (22:08)
[2024-02-07] MEDS: KETOROLAC 30 MG/ML VIAL IV (22:09)
--- NOTE | 2024-02-07 23:23 | PC.NURSE ---
fast food shift lead: Patient is AxOx4, VSS, O2 saturation 97% on RA. Lung sounds are CTA. Denies N/V. Complaints of 10/10 pain primarily in abdomen, however it radiates to chest & to back. States that his chest pain comes and goes , however the abdominal pain is consistent. Notified MD [place]; 12-lead EKG complete & labs drawn. Medicated for pain as ordered. IVF infusing. Oriented to room & call-light. Denies dizziness or difficulty ambulating. Plan of care ongoing.
[2024-02-08 03:16] VITALS: BP 137/85; PULSE 99; RESP 18; O2SAT 99
[2024-02-08] MEDS: HYDROMORPHONE 1 MG INJ 2 MG IV ×3 (03:18→08:55)
[2024-02-08] MEDS: SODIUM CHLORIDE 0.9% 1,000 ML 200 ML IV (03:25)
[2024-02-08 05:55] LABS: Add Manual Diff / Slide Review NO; Basophils Absolute Auto 0 /uL (0-100); Basophils Percent Auto 0.3 % (0-2); Eosinophils Absolute Auto 300 /uL (0-450); Eosinophils Percent Auto 1.9 % (2-4); Hematocrit 37.9 % (41-53); Hemoglobin 12.9 g/dL (13.5-17.5); Lymphocytes Absolute Auto 2000 /uL (1100-4500); Lymphocytes Percent Auto 13.2 % (25-40); Mean Corpuscular Hemoglobin 33.4 PG (26-34); Mean Corpuscular Volume 98.3 fL (80-100); Monocytes Absolute Auto 900 /uL (0-900); Monocytes Percent Auto 6.1 % (3-14); Neutrophils Absolute Auto 11700 /uL (1500-7000); Neutrophils Percent Auto 78.5 % (50-75); Platelet Count 176 X10^3/uL (150-400); Red Blood Cell Count 3.85 X10^6/uL (4.5-5.9); Red Cell Distribution Width 13.4 % (11.6-14.8); White Blood Cell Count 14.9 X10^3/uL (4.5-11.0)
[2024-02-08 06:16] LABS: Alanine Aminotransferase 24 IU/L (<50); Albumin 3.5 g/dL (3.5-5.0); Albumin Globulin Ratio 1.2 (1.0-2.8); Alkaline Phosphatase 125 U/L (38-126); Aspartate Aminotransferase 33 IU/L (17-59); Bilirubin Total 0.9 mg/dL (0.2-1.3); Blood Urea Nitrogen 6 mg/dL (9-20); Carbon Dioxide 27 mmol/L (22-32); Chloride 107 mmol/L (98-107); Estimated Glomerular Filt Rate > 60 mL/min (>60); Glucose 94 mg/dL (70-100); HEMOLYSIS < 15 (0-50); Potassium 3.2 mmol/L (3.4-5.1); Sodium 136 mmol/L (137-145); Total Protein 6.5 g/dL (6.3-8.2)
[2024-02-08] MEDS: KETOROLAC 30 MG/ML VIAL IV (06:34)
[2024-02-08 08:00] VITALS: BP 139/85; PULSE 107; RESP 18; TEMP 37.1; O2SAT 97
[2024-02-08] MEDS: BUPRENORPHINE/NALOXONE 8MG/2MG 1 TAB 2 TAB SL (08:51)
[2024-02-08] MEDS: NICOTINE 21 MG PATCH TOP (08:54)
[2024-02-08] MEDS: PANTOPRAZOLE 40 MG VIAL IV (08:56)
--- NOTE | 2024-02-08 09:43 | P.PN_ITS ---
Subjective Subjective Date Patient Seen: 02/08/24 Time Patient Seen: 07:45 Interval history: The patient reports ongoing diffuse bandlike abdominal pain across the mid epigastrium. No nausea or vomiting. He states pain is improved and he is interested in a clear liquid diet. Exam Vital Signs (past 8 hours): - 02/08/24 03:16 02/08/24 08:00 Temperature 98.8 F Pulse Rate 99 H 107 H Respiratory Rate 18 18 Blood Pressure 137/85 139/85 Pulse Oximetry 99 97 Oxygen Flow Rate 0 0 Oxygen Delivery Method Room Air Oxygen Flow Rate 0 Narrative Exam Narrative: GENERAL: This is a well-nourished, well-developed patient, in no apparent distress. HEAD: Atraumatic. Normocephalic. No temporal or scalp tenderness. EYES: Pupils equal round and reactive. Extraocular motions intact. No scleral icterus. No injection or drainage. ENT: Mucous membranes pink and moist. NECK: Trachea midline. No JVD, bruits or lymphadenopathy. Supple, nontender, no meningeal signs. CARDIOVASCULAR: Regular rate and rhythm without murmurs, gallops, or rubs. RESPIRATORY: Clear to auscultation. GASTROINTESTINAL: Abdomen soft, no guarding, mild diffuse abdominal tenderness, most prominent in the mid abdomen, nondistended. EXTREMITIES: No clubbing, cyanosis, or edema. BACK: Nontender without deformity or crepitance. No flank tenderness. NEUROLOGIC: Alert, oriented, speech fluent, full upper and lower motor strength, no focal deficits evident. DERMATOLOGIC: No rashes or skin lesions. Objective Labs 02/08/24 04:40 02/08/24 04:40 Labs: Laboratory Results - last 24 hr 02/07/24 02/07/24 02/08/24 07:42 21:30 04:40 WBC 11.9 H 14.9 H RBC 4.37 L 3.85 L Hgb 14.7 12.9 L Hct 42.6 37.9 L MCV 97.6 98.3 MCH 33.7 33.4 MCHC 34.5 34.0 RDW 13.6 13.4 Plt Count 192 176 Neut % (Auto) 77.3 H 78.5 H Lymph % (Auto) 15.3 L 13.2 L [place] % (Auto) 5.8 6.1 Eos % (Auto) 1.4 L 1.9 L Baso % (Auto) 0.2 0.3 Neut # (Auto) 9200 H 82747 H Lymph # (Auto) 1800 2000 [place] # (Auto) 700 900 Eos # (Auto) 200 300 Baso # (Auto) 0 0 Sodium 136 L 136 L Potassium 3.5 3.2 L Chloride 105 107 Carbon Dioxide 27 27 BUN 4 L 6 L Creatinine 0.67 0.67 Estimated GFR > 60 > 60 BUN/Creatinine Ratio 6.0 9.0 Glucose 110 H 94 Calcium 8.4 8.0 L Magnesium 2.2 Total Bilirubin 0.9 0.9 AST 57 33 ALT 38 24 Alkaline Phosphatase 155 H 125 Troponin I < 0.012 Total Protein 6.6 6.5 Albumin 3.7 3.5 Globulin 2.9 3.0 Albumin/Globulin Ratio 1.3 1.2 PFSH Medical History Colitis Social History household members: significant other and other Smoking Status: Current every day smoker Assessment & Plan Assessment & Plan narrative: Alcoholic Pancreatitis - recurrent, no evidence of gallstones on abd US or CBD dilation, LFT's and T- bili normal - advance to clear liquid diet - antiemetics, pain management-difficult to control, but able to switch to oral pain meds today - advised to avoid alcohol Opiate Abuse - nurse found fentanyl in the room - continue home suboxone - counseling - IV dilaudid PRN Hypokalemia - supplemented - monitored electrolytes GERD- PPI DVT prophylaxis - SCDs Dispo: 2 days to improve abd pain from pancreatitis. Quality MIPS - Admit I confirm the patient?s Advance Care Plan is present, Code status is documented, Surrogate decision maker is in patient?s record [If Yes, STOP here]: Yes MIPS - Meds 'Current medications' to include all prescriptions, [id number] products, herbals, cannabis/cannabidiol products, and vitamin/mineral/dietary (nutritional) supplements. I have utilized all available resources to obtain, update, or review the patient?s current medications. [If Yes, STOP here]: Yes PROFEE Charge codes Subsequent inpatient/observation care: 09525
--- NOTE | 2024-02-08 11:09 | P.DS_ITS ---
History of Present Illness History of Present Illness Date Patient Seen: 02/08/24 Time Patient Seen: 07:45 Chief complaint: sob, abd pain Narrative: 38 y/o with PMH of drug abuse and alcoholism, presented to ED with epigastric and LUQ pain, radiating to back and diagnosed with alcoholic pancreatitis. He recently had multiple visits with different providers complaining on episodic abdominal pain and tenderness. On one of such visits he was prescibed Bentyl. He also takes PPI for GERD. Todays pain is much worse and he is unable to hold PO. Admitted for IVFs, antiemetics, pain management. Further info: Patient this morning says his abd pain is terrible and he hasn't had anything like this before. He wants his suboxone restarted. Discharge Providers Provider Date of admission: 02/07/24 00:26 Discharge Date: 02/08/24 Primary care physician: Doctor Kathrin MD Discharge provider: Silvio Lam MD Summary Hospital Course Hospital Course: Abdomen pelvis CT 02/06/2024: Acute interstitial pancreatitis without vascular complication or acute peripancreatic collection. Chest CT angiogram : No pulmonary embolus. No acute cardiopulmonary process. Please see dedicated abdomen pelvis CT for pertinent information. Abdomen ultrasound 02/07/2024: Biliary sludge without cholelithiasis or evidence of cholecystitis Chest x-ray 02/07/2024: No acute cardiopulmonary abnormality is seen. Hospital course: The patient was admitted for IV hydration, pain control, antiemetics and bowel rest. He was felt to have recurrent alcohol induced pancreatitis with no evidence of gallstone on abdominal ultrasound, bile duct dilatation, or abnormal liver function tests. He was advanced to a clear liquid diet and able to tolerate well. He was interested in discharge home. He was also noted to have fentanyl in his room. He was continued on his home Suboxone therapy with outpatient substance abuse follow-up advised. No other issues arose. Status at Discharge Cognitive/behavioral status at discharge: oriented Functional status at discharge: independent ambulation Overall status at discharge: patient is back to baseline Time Spent with Patient Time spent: Less than 30 minutes Exam Vital Signs (past 8 hours): - 02/08/24 03:16 02/08/24 08:00 Temperature 98.8 F Pulse Rate 99 H 107 H Respiratory Rate 18 18 Blood Pressure 137/85 139/85 Pulse Oximetry 99 97 Oxygen Flow Rate 0 0 Oxygen Delivery Method Room Air Oxygen Flow Rate 0 Narrative Exam Narrative: GENERAL: This is a well-nourished, well-developed patient, in no apparent distress. HEAD: Atraumatic. Normocephalic. No temporal or scalp tenderness. EYES: Pupils equal round and reactive. Extraocular motions intact. No scleral icterus. No injection or drainage. ENT: Mucous membranes pink and moist. NECK: Trachea midline. No JVD, bruits or lymphadenopathy. Supple, nontender, no meningeal signs. CARDIOVASCULAR: Regular rate and rhythm without murmurs, gallops, or rubs. RESPIRATORY: Clear to auscultation. GASTROINTESTINAL: Abdomen soft, no guarding, mild diffuse abdominal tenderness, most prominent in the mid abdomen, nondistended. EXTREMITIES: No clubbing, cyanosis, or edema. BACK: Nontender without deformity or crepitance. No flank tenderness. NEUROLOGIC: Alert, oriented, speech fluent, full upper and lower motor strength, no focal deficits evident. DERMATOLOGIC: No rashes or skin lesions. Objective Labs 02/08/24 04:40 02/08/24 04:40 Labs: Laboratory Results - last 24 hr 02/07/24 02/08/24 21:30 04:40 WBC 14.9 H RBC 3.85 L Hgb 12.9 L Hct 37.9 L MCV 98.3 MCH 33.4 MCHC 34.0 RDW 13.4 Plt Count 176 Neut % (Auto) 78.5 H Lymph % (Auto) 13.2 L [place] % (Auto) 6.1 Eos % (Auto) 1.9 L Baso % (Auto) 0.3 Neut # (Auto) 94864 H Lymph # (Auto) 2000 [place] # (Auto) 900 Eos # (Auto) 300 Baso # (Auto) 0 Sodium 136 L Potassium 3.2 L Chloride 107 Carbon Dioxide 27 BUN 6 L Creatinine 0.67 Estimated GFR > 60 BUN/Creatinine Ratio 9.0 Glucose 94 Calcium 8.0 L Total Bilirubin 0.9 AST 33 ALT 24 Alkaline Phosphatase 125 Troponin I < 0.012 Total Protein 6.5 Albumin 3.5 Globulin 3.0 Albumin/Globulin Ratio 1.2 [facility] Medical History Colitis Social History household members: significant other and other Smoking Status: Current every day smoker Discharge Plan Discharge Plan Patient Disposition: Home Discharge orders & Medications Prescriptions: Continued dicyclomine 20 mg tablet 20 mg PO BID PRN (Reason: cramping pain) Qty: 10 0RF pantoprazole 20 mg tablet,delayed release (DR/EC) 20 mg PO DAILY Qty: 14 0RF ondansetron 4 mg tablet,disintegrating 4 mg PO Q8H PRN (Reason: nausea and vomiting) Qty: 20 1RF buprenorphine-naloxone 8-2 mg Tablet, Sublingual 2 tab SUBLINGUAL DAILY Patient Comments: pt states he takes 2-8mg tablets daily Follow up/Referrals: Doctor Pinon MD [Primary Care Provider] - Visit Report/Discharge Packet Stand Alone Forms: Patient Portal/API Discharge Data Primary Care Provider: Doctor Kathrin Quality MIPS - Admit I confirm the patient?s Advance Care Plan is present, Code status is documented, Surrogate decision maker is in patient?s record [If Yes, STOP here]: Yes MIPS - Meds 'Current medications' to include all prescriptions, [id number] products, herbals, cannabis/cannabidiol products, and vitamin/mineral/dietary (nutritional) supplements. I have utilized all available resources to obtain, update, or review the patient?s current medications. [If Yes, STOP here]: Yes MIPS - DC The patient has a history of heart transplant or Left Ventricular Assist Device (LVAD). If yes, STOP here.: No The patient has current or prior documentation of left ventricular ejection fraction (LVEF) less than or equal to 40%, or moderate or severely depressed left ventricular systolic function.: No A. The patient was prescribed or already taking an Angiotensin-Converting Enzyme (JOSE) Inhibitor, or Angiotensin Receptor Mike (ARB).: No B. The patient was prescribed or already taking a beta-mike. [If Yes to Both A & B, STOP here]: No Patient not prescribed/taking JOSE or ARB, no reason given.: No Patient not prescribed/taking beta-mike, no reason given.: No IH PROFEE Charge Codes Discharge inpatient/observation: 91405
--- NOTE | 2024-02-08 11:38 | PC.NURSE ---
Day shift: Paperwork signed and all question sanswered. Pt has all personal belongings. Encouraged to make contact with a PCP for future health needs and help. Left at approx 1135. Pt's S.O. is driving him home. No new MD scripts.
--- NOTE | 2024-02-08 11:44 | CM.DPNOTE ---
DCP Note MANAGING MANAGER reviewed EMR. per hospitalist in morning rounds, if pt able to tolerate clears may be able to dc home today. Per RN report, pt tolerated morning clears. Per PILOT CONTROL OPERATOR HELPER report, pt eager to dc home. Per chart review, pt left prior to being seen by this MANAGING MANAGER. Per previous CM DCP assessment, anticipated pt would return to [place] with ex gf and her mother. Pt denied MANAGING MANAGER/CM DCP needs during initial assessment. Plan: pt dc'd home today. CM team will continue to follow as needed. FABIANA Mccord
== END 2024-02-08 11:39 | disposition home or self-care (01) | DRG 282 ==
LOC: ED 22:15 → AC 02-07 00:27
PROVIDERS: Emergency Medicine; Student in an Organized Health Care Education/Training Program; Admitting Provider Internal Medicine; Emergency Provider Emergency Medicine; Referring Provider Emergency Medicine; Visit Provider Internal Medicine
DX: K85.20 Alcohol induced acute pancreatitis without necrosis or infection (principal); F10.20 Alcohol dependence, uncomplicated; E87.6 Hypokalemia; F11.10 Opioid abuse, uncomplicated; K21.9 Gastro-esophageal reflux disease without esophagitis; Y90.0 Blood alcohol level of less than 20 mg/100 ml
CPT/HCPCS: 36415; 71045; 71275; 74177; 76705; 80053; 80320; 81003; 81015; 83690; 83735; 84484; 85025; 87633; 93005; 93010; 96374; 96375; 96376; 99284; 99291; C9113; J1170; J1885; J2060; J2405; Q9967